=== PATIENT | female | born 1955 | race Caucasian/White ===

== ENCOUNTER 2017-08-07 09:05 | Inpatient (IN) | payer OTHER ==
[~2017-08-07] VITALS: Ht 154.9 cm; Wt 149.3 kg
--- NOTE | 2017-08-07 09:12 | ED DYSPNEA/ASTHMA COMPLAINT ---
History of Present Illness General Chief Complaint: Dyspnea (COPD, CHF, Other) Stated Complaint: BIBA SOB/INCREASED EDEMA Source: patient, old records, EMS Exam Limitations: no limitations Vital Signs & Intake/Output Vital Signs & Intake/Output Vital Signs Date Time Temp Pulse Resp B/P B/P Pulse O2 O2 Flow FiO2 Mean Ox Delivery Rate 08/07 1104 90 Room Air 08/07 1030 99 Room Air 08/07 0908 96.4 93 24 130/59 100 Nasal 4.0L Cannula Allergies Coded Allergies: NO KNOWN ALLERGIES (08/07/17) Reconcile Medications Acetaminophen 500 MG TABLET 2 TAB PO QAM PAIN (Reported) Aspirin (Ecotrin*) 81 MG TABLET.DR 2 TAB PO QAM HEART/BLOOD (Reported) Atorvastatin Calcium 20 MG TABLET 1 TAB PO QPM CHOLESTEROL (Reported) Clopidogrel Bisulfate (Clopidogrel) 75 MG TABLET 1 TAB PO DAILY BLOOD THINNER (Reported) Linagliptin (Tradjenta) 5 MG TABLET 1 TAB PO DAILY DM (Reported) Lisinopril/Hydrochlorothiazide (Lisinopril-Hctz 20-25 MG Tab) 20 MG-25 MG TABLET 1 TAB PO DAILY BP (Reported) Metformin HCl 1,000 MG TABLET 1 TAB PO BID DM (Reported) Pioglitazone HCl 30 MG TABLET 1 TAB PO DAILY DM (Reported) Tramadol HCl 50 MG TABLET 1 TAB PO QPM PAIN (Reported) Zolpidem Tartrate 10 MG TABLET 1 TAB PO QPM SLEEP (Reported) Triage Nurses Notes Reviewed? yes HPI: Patient woke up in a pool of urine. This is very atypical for the patient. Patient states that she was treated for urinary tract infection 1 month ago. Patient denies any dysuria. There are no fevers or chills. Patient also noticed that she felt short of breath. Patient denies any chest pain or chest tightness. There is no orthopnea. She does state that her legs have been more swollen over the past 2 days. Upon EMS arrival patient was found with a room air oxygen saturation of 86%. Patient was placed on 4 L via nasal cannula and the oxygen saturation came up to 99%. Past History Travel History Traveled to [place] past 21 day No Medical History Any Pertinent Medical History? see below for history Cardiovascular: hypertension, hyperlipidemia Endocrine: diabetes Cancer(s): UTERINE Surgical History Surgical History: hysterectomy Psychosocial History What is your primary language Lao Tobacco Use: Quit >30 days ago ETOH Use: denies use Illicit Drug Use: denies illicit drug use Family History Hx Contributory? No Review of Systems Review of Systems Constitutional: Reports: no symptoms. EENTM: Reports: no symptoms. Respiratory: Reports: see HPI, short of breath. Cardiovascular: Reports: no symptoms. GI: Reports: no symptoms. Genitourinary: Reports: see HPI. Musculoskeletal: Reports: no symptoms. Skin: Reports: no symptoms. Neurological/Psychological: Reports: no symptoms. Hematologic/Endocrine: Reports: no symptoms. Immunologic/Allergic: Reports: no symptoms. All Other Systems: Reviewed and Negative Physical Exam Physical Exam General Appearance: well developed/nourished, alert, awake, anxious, mild distress Head: atraumatic, normal appearance Eyes: Bilateral: PERRL, EOMI. Ears, Nose, Throat: normal pharynx, normal ENT inspection, hearing grossly normal Neck: normal inspection, supple, full range of motion Respiratory: decreased breath sounds, crackles Cardiovascular: regular rate/rhythm, normal peripheral pulses Gastrointestinal: normal bowel sounds, soft, non-tender Extremities: normal capillary refill, pedal edema Neurologic/Psych: no motor/sensory deficits, awake, alert, oriented x 3, normal mood/affect Skin: intact, normal color, warm/dry Lymphatic: no anterior cervical mone Core Measures ACS in differential dx? No CVA/TIA Diagnosis No Sepsis Present: No Sepsis Focused Exam Completed? No Progress Differential Diagnosis: AMI, bronchitis, CHF, COPD, pulmonary embolism, pneumonia Plan of Care: Orders Procedure Date/time Status Heart Healthy Diet 08/07 D Active Patient Data 08/07 1113 Active ED Holding Orders 08/07 1101 Active Admit to inpatient 08/07 1101 Active Vital Signs 08/07 1101 Active Code Status 08/07 1101 Active Kahn, Insertion/Removal/Asses 08/07 1044 Active CULTURE,URINE 08/07 1044 Active Intake & Output 08/07 1029 Active Telemetry/Bleacher Lard 08/07 0912 Active URINALYSIS 08/07 0912 Active TROPONIN LEVEL 08/07 0912 Complete COMPREHENSIVE METABOLIC PANEL 08/07 0912 Complete CBC WITHOUT DIFFERENTIAL 08/08 911 Complete B-TYPE NATRIURETIC PEP (BNP) 08/07 09 Complete EKG 08/07 0908 Active Laboratory Tests 08/07/17 0923: Anion Gap 7, Estimated GFR > 60, BUN/Creatinine Ratio 68.8 H, Glucose 118 H, Calcium 9.7, Total Bilirubin 0.4, AST 19, ALT 18, Alkaline Phosphatase 86, Troponin I < 0.01, [id number] Pept 1910 H, Total Protein 6.8, Albumin 3.5, Globulin 3.3, Albumin/Globulin Ratio 1.1, CBC w Diff MAN DIFF ORDERED, RBC 4.23, MCV 80.9 L, MCH 24.7 L, MCHC 30.5 L, RDW 19.1 H, MPV 7.2 L, Gran % 84.4 H, Lymphocytes % 5.4 L, Monocytes % 9.2, Eosinophils % 0.9, Basophils % 0.1, Absolute Granulocytes 8.2 H, Absolute Lymphocytes 0.5 L, Absolute Monocytes 0.9 H, Absolute Eosinophils 0.1, Absolute Basophils 0, Platelet Estimate VERIFIED BY SMEAR, Polychromasia 1+, Hypochromic-Microcytic 1+, Poikilocytosis 1+, Anisocytosis 1+, Ovalocytes 1+, Stomatocytes 1+ Microbiology 08/07 1044 URINE ROUT: Urine Culture - ORD Diagnostic Imaging: Viewed by Me: Radiology Read. Discussed w/RAD: Radiology Read. CXR Impression: PATIENT: KITTY MAGANA PRESENT AGE: 62 PATIENT ACCOUNT NO: [id number] : 56 LOCATION: [facility] ORDERING PHYSICIAN: Jeison Munguia MD SERVICE DATE: 08/07/17 EXAM TYPE: RAD - XRY- PORTABLE CHEST XRAY EXAMINATION: XR PORTABLE CHEST CLINICAL INFORMATION: Shortness of breath and hypoxia. COMPARISON: CT scan of 07/30/15. TECHNIQUE: Portable frontal view of the chest was obtained. FINDINGS: Evaluation is limited because of portable technique and patient body habitus. There appears to be bibasilar opacity concerning for layering pleural fluid with associated atelectasis. Pneumonia is not excluded. Heart size is mildly enlarged. IMPRESSION: Limited evaluation. Question small bilateral layering pleural effusions with associated basilar opacity consistent with atelectasis and/or pneumonia. Mildly enlarged cardiac silhouette. DICTATED BY: Linda Dodd MD DATE/TIME DICTATED:08/07/17944 ADOBE BALL MIXER:SHERRY DATE/TIME TRANSCRIBED:08/07/17944 CONFIDENTIAL, DO NOT COPY WITHOUT APPROPRIATE AUTHORIZATION. <Electronically signed in Other Vendor System> SIGNED BY: Linda Dodd MD 08/07/17 0954 Initial ED EKG: SR, NO STT CHANGES, NO CHANGE FROM PRIOR Prior EKG: unchanged Rhythm Strip: normal sinus rhythm Departure Departure Disposition: STILL A PATIENT Condition: Stable Clinical Impression Primary Impression: Fluid overload Referrals: Hernan NAPOLES,Darryl Moreno (PCP/Family) Departure Forms: Customer Survey General Discharge Information Admission Note Spoke With: Christin NAPOLES,Winifred Conde Documentation of Exam: Documentation of any treatments & extenuating circumstances including Concerns Regarding Discharge (functional status, medication knowledge or non-compliance, living conditions, etc.) that warrant an admission rather than observation: [ TELE MONITORING, SERIAL ENZYMES, IV DIURESIS, CARDIOLOGY EVALUATION] Critical Care Note Critical Care Note Critical Care Time: non-applicable
[2017-08-07 09:35] LABS: ABSOLUTE BASOPHIL COUNT 0 /CUMM (0.0-0.2); ABSOLUTE EOSINOPHIL COUNT 0.1 /CUMM (0.0-0.7); ABSOLUTE GRANULOCYTE CT 8.2 /CUMM (1.4-6.5); ABSOLUTE LYMPH COUNT 0.5 /CUMM (1.2-3.4); ABSOLUTE MONOCYTE COUNT 0.9 /CUMM (0.10-0.60); BASOPHIL % 0.1 % (0.0-2.0); EOSINOPHIL % 0.9 % (0-5); GRANULOCYTE % 84.4 % (42.2-75.2); HEMATOCRIT 34.2 % (37-47); MEAN CORPUSCULAR HGB 24.7 PG (27.0-31.0); MEAN CORPUSCULAR HGB CONC 30.5 G/DL (33.0-37.0); MEAN CORPUSCULAR VOLUME 80.9 FL (81.0-99.0); MEAN PLATELET VOLUME 7.2 FL (7.4-10.4); PLATELET COUNT 278 /CUMM (130-400); RBC DISTRIBUTION WIDTH 19.1 % (11.5-14.5); RED BLOOD CELL CT 4.23 /CUMM (4.20-5.40); WHITE BLOOD CELL COUNT 9.8 /CUMM (4.8-10.8)
--- NOTE | 2017-08-07 09:54 | RADIOLOGY REPORT ---
EXAMINATION: XR PORTABLE CHEST CLINICAL INFORMATION: Shortness of breath and hypoxia. COMPARISON: CT scan of 07/30/15. TECHNIQUE: Portable frontal view of the chest was obtained. FINDINGS: Evaluation is limited because of portable technique and patient body habitus. There appears to be bibasilar opacity concerning for layering pleural fluid with associated atelectasis. Pneumonia is not excluded. Heart size is mildly enlarged. IMPRESSION: Limited evaluation. Question small bilateral layering pleural effusions with associated basilar opacity consistent with atelectasis and/or pneumonia. Mildly enlarged cardiac silhouette.
[2017-08-07] MEDS ORDERED: CLOPIDOGREL75 M1 PO (11:42)
[2017-08-07] MEDS ORDERED: PIOGLITAZONE HC30 M1 PO (11:42)
[2017-08-07] MEDS ORDERED: LISINOPRIL-HCT1 EAC1 PO (11:43)
[2017-08-07] MEDS ORDERED: ATORVASTATIN CA20 M1 PO (11:43)
[2017-08-07] MEDS ORDERED: ZOLPIDEM TARTRA10 M1 PO (11:43)
[2017-08-07] MEDS ORDERED: METFORMIN HCL1000 M1 PO (11:43)
[2017-08-07] MEDS ORDERED: TRADJENTA5 M1 PO (11:43)
[2017-08-07] MEDS ORDERED: TRAMADOL HCL50 M1 PO (11:43)
[2017-08-07] MEDS ORDERED: ASPIRIN EC81 M1 PO (11:44)
[2017-08-07] MEDS ORDERED: ACETAMINOPHEN500 M4 PO (11:44)
--- NOTE | 2017-08-07 13:19 | History & Physical ---
Dagoberto Hayes 08/07/17 1319: General Information and HPI MD Statement: I have seen and personally examined KITTY MAGANA and documented this H&P. The patient is a 62 year old F who presented with a patient stated chief complaint of shortness of breath, bilateral lower extremity swelling for a few days. Source of Information: patient Exam Limitations: no limitations History of Present Illness: This is a 62-year-old female with past medical history significant for hypertension, hyperlipidemia, type 2 diabetes mellitus, insomnia, chest pain status post cardiac stent placement 2015, on dual anti platelet agents aspirin, Plavix, uterine cancer status post hysterectomy, chemotherapy, radiotherapy, morbidly obese presented to the emergency room for evaluation of shortness of breath and bilateral lower extremity swelling for few weeks. Patient reports extreme shortness of breath for last few weeks. She reports that she couldn't get out of her bed this morning. She tried almost 3 hours to get out off her bed this morning, couldn't succeed, urinated on her bed. She reports extreme shortness of breath which is ongoing for few days. Also she reports bilateral lower extremity swelling extended up to her groin, abdomen for last few weeks. She couldn't take her shower for last 3 weeks as she couldn't bend because of abdominal distention. She denies any chest pain, palpitations, fever, chills, productive cough, nausea , vomiting, abdomen pain, change in bladder or bowel habits. She denied any constipation, diarrhea, urinary frequency, urgency, dysuria. However she reports rash in her private parts for last few weeks. Also reports foul- smelling from her private areas. She denies any orthopnea, paroxysmal nocturnal dyspnea. She reports weight gain of more than 100 pounds in last few months. She has history of cardiac stent placement 2 years back, taking aspirin and Plavix daily. She denies alcohol abuse, illicit drug abuse. She smokes one pack per day for last 40 years. She follows up with her primary care physician. 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 She never tested for copd - pulmonary function tests. 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 Denies: chills, diaphoresis, fever, malaise, weakness, unexplained weight loss. EENTM: Denies: blurred vision, double vision. Cardiovascular: Reports: edema, peripheral edema. Denies: chest pain, orthopena, palpitations, syncope. Respiratory: Reports: short of breath. Denies: cough, hemoptysis, orthopnea, sputum production, stridor, wheezing. GI: Reports: distention. Denies: abdominal pain, bloating, constipation, diarrhea, melena, nausea, changes in stool. Genitourinary: Denies: discharge, dysuria, frequency. Musculoskeletal: Reports: joint pain. Denies: back pain, gout. Skin: Denies: dryness, erythema, jaundice, lesions, moles. Neurological/Psychological: Denies: anxiety, ataxia, confusion, depressed, dementia. Exam & Diagnostic Data Last 24 Hrs of Vital Signs/I&O Vital Signs Date Time Temp Pulse Resp B/P B/P Pulse O2 O2 Flow FiO2 Mean Ox Delivery Rate 08/07 1237 96.6 84 18 119/56 97 Nasal 4.0L Cannula 08/07 1104 90 Room Air 08/07 1030 99 Room Air 08/07 0908 96.4 93 24 130/59 100 Nasal 4.0L Cannula Intake & Output 08/07 1600 08/07 0800 08/07 0000 Intake Total 0 Output Total Balance 0 Intake, Oral 0 Patient 124.738 kg Weight Weight Reported by Patient Measurement Method Physical Exam General Appearance Alert, Oriented X3, Cooperative, No Acute Distress Skin No Rashes, No Breakdown Skin Temp/Moisture Exam: Warm/Dry Sepsis Skin Exam (color): Normal for Ethnicity HEENT Atraumatic, PERRLA, EOMI, Mucous Membr. moist/pink Neck Supple, No JVD Lymphatic Cervical nl Cardiovascular Regular Rate, Normal S1, Normal S2, No Murmurs Lungs Normal Air Movement Abdomen Normal Bowel Sounds, Soft, No Tenderness, distended abdomen including groin Neurological Normal Gait, Normal Speech, Strength at 5/5 X4 Ext, Normal Tone, Cranial Nerves 3-12 NL, Reflexes 2+ Extremities No Clubbing, No Cyanosis, +3 edema pititing Vascular Normal Pulses, Pulses Symmetrical Sepsis Peripheral Pulse Location: Radial Sepsis Peripheral Pulse Exam: Normal Sepsis Cap Refill Exam: <2 Sec Last 24 Hrs of Labs/William: Laboratory Tests 08/07/17 1207: Urine Color YEL, Urine Clarity HAZY H, Urine pH 5.5, Ur Specific [place] 1.025, Urine Protein TRACE H, Urine Ketones NEG, Urine Nitrite POS H, Urine Bilirubin NEG, Urine Urobilinogen 0.2, Ur Leukocyte Esterase NEG, Ur Microscopic SEDIMENT EXAMINED, Urine RBC RARE, Urine WBC RARE, Ur Epithelial Cells RARE, Urine Bacteria MANY H, Urine Hemoglobin NEG, Urine Glucose NEG 08/07/17 0923: Anion Gap 7, Estimated GFR > 60, BUN/Creatinine Ratio 68.8 H, Glucose 118 H, Calcium 9.7, Total Bilirubin 0.4, AST 19, ALT 18, Alkaline Phosphatase 86, Troponin I < 0.01, Ypj-H-Riipuxzccym Pept 1910 H, Total Protein 6.8, Albumin 3.5, Globulin 3.3, Albumin/Globulin Ratio 1.1, CBC w Diff MAN DIFF ORDERED, RBC 4.23, MCV 80.9 L, MCH 24.7 L, MCHC 30.5 L, RDW 19.1 H, MPV 7.2 L, Gran % 84.4 H, Lymphocytes % 5.4 L, Monocytes % 9.2, Eosinophils % 0.9, Basophils % 0.1, Absolute Granulocytes 8.2 H, Absolute Lymphocytes 0.5 L, Absolute Monocytes 0.9 H, Absolute Eosinophils 0.1, Absolute Basophils 0, Platelet Estimate VERIFIED BY SMEAR, Polychromasia 1+, Hypochromic-Microcytic 1+, Poikilocytosis 1+, Anisocytosis 1+, Ovalocytes 1+, Stomatocytes 1+ Microbiology 08/07 1206 URINE ROUT: Urine Culture - RECD Diagnostic Data EKG Results EKG normal sinus rhythm, rate 83, no acute ST-T wave changes CXR Results Question small bilateral layering pleural effusions with associated basilar opacity consistent with atelectasis and/or pneumonia. Mildly enlarged cardiac silhouette. Assessment/Plan Assessment: This is a 62-year-old female with past medical history significant for hypertension, hyperlipidemia, type 2 diabetes mellitus, insomnia, chest pain status post cardiac stent placement 2016, on dual anti platelet agents aspirin, Plavix, uterine cancer status post hysterectomy, chemotherapy, radiotherapy, morbidly obese presented to the emergency room for evaluation of shortness of breath and bilateral lower extremity swelling for few weeks. Vital signs afebrile, heart rate 90, respiratory rate 24, blood pressure 130/60, Saturating at 100 on 4 L. labs WBC 9.8, hemoglobin 10 and hematocrit 34, platelets 278 Sodium 139, k 5.1, BUN 55, creatinine 0.8 LFT normal Troponin negative EKG 89, sinus rhythm, no acute ST-T wave changes cxr small bilateral layering pleural effusions witassociated basilar opacity consistent with atelectasis and/or pneumonia. Mildly enlarged cardiac silhouette. --- 1. Anasarca/generalized swelling/fluid overload/questionable CHF she presented to the emergency room for evaluation of shortness of breath and bilateral lower extremity swelling for few weeks. She couldn't take her shower for last 3 weeks as she couldn't bend because of abdominal distention. Patient reports generalized swelling involving lower extremities up to her groin, abdomen. She denies any orthopnea, paroxysmal nocturnal dyspnea. She reports weight gain of more than 100 pounds in last few months. She is very hypoxic requiring 4 L oxygen supplementation in the emergency room. Labs were within normal limits. Chest x-ray was done which showed bilateral small pleural effusion and mild cardiomegaly. * Possible differentials congestive heart failure leading to generalized anasarca. * Admit to telemetry * Continuous telemetry monitoring * Oxygen supplementation * Maintain oxygen saturation above 90 * Monitor ins and outs * Daily weight * IV Lasix 40 twice daily * Echocardiogram * Cardiology consult * Serial monitoring of troponin and EKG * Monitor BUN, creatinine, electrolytes while on Lasix * Foleys catheter in place Fungal rash involving groin she reports rash in her private parts for last few weeks. Also reports foul- smelling from her private areas. * Continue nystatin powder daily CAD She has history of cardiac stent placement 2 years back, taking aspirin and Plavix daily. * Continue home medication aspirin and Plavix daily Hypertension continue lisinopril, hydrochlorothiazide daily Hyperlipidemia continue Lipitor 20 daily Diabetes mellitus continue Accu-Cheks insulin sliding scale. Patient is on metformin, TRADJENTA, pioglitazone at home. Given her fluid overload consider stopping pioglitazone at the time of discharge. Endocrinology consult in the a.m. Insomnia continue home dose of zolpidem 10 mg daily at bedtime Arthritis pain continue tramadol 50 mg at nighttime as needed She is full code Heart healthy diet DVT prophylaxis subcutaneous Lovenox Pain pathway altered As Ranked By This Provider Problem List: 1. Fluid overload Core Measures/Misc (02/13) Acute Coronary Syndrome ACS Diagnosis: No Congestive Heart Failure Congestive Heart Failure Diagnosis No Cerebrovascular Accident CVA/TIA Diagnosis: No VTE (View Protocol) VTE Risk Factors Acute Medical Illness No Mechanical VTE Prophylaxis d/t N/A MechProphylax Ordered No VTE Pharm Prophylaxis d/t NA PharmProphylax ordered Sepsis (View protocol) Sepsis Present: No Winifred Waller 08/07/17 1446: General Information and HPI Allergies/Medications Home Med list Acetaminophen 500 MG TABLET 2 TAB PO QAM PAIN (Reported) Aspirin (Ecotrin*) 81 MG TABLET.DR 2 TAB PO QAM HEART/BLOOD (Reported) Atorvastatin Calcium 20 MG TABLET 1 TAB PO QPM CHOLESTEROL (Reported) Clopidogrel Bisulfate (Clopidogrel) 75 MG TABLET 1 TAB PO DAILY BLOOD THINNER (Reported) Empagliflozin (Jardiance) 10 MG TABLET 1 TAB PO DAILY DM Furosemide 40 MG TABLET 1 TAB PO BID diuretic Linagliptin (Tradjenta) 5 MG TABLET 1 TAB PO DAILY DM (Reported) Lisinopril 20 MG TABLET 20 MG PO DAILY Blood Pressure Lisinopril/Hydrochlorothiazide (Lisinopril-Hctz 20-25 MG Tab) 20 MG-25 MG TABLET 1 TAB PO DAILY BP (Reported) Metformin HCl 1,000 MG TABLET 1 TAB PO BID DM (Reported) Pioglitazone HCl 30 MG TABLET 1 TAB PO DAILY DM (Reported) Potassium Chloride (Klor-Con M20) 20 MEQ TAB.ER.PRT 20 MEQ PO DAILY Lasix use Tramadol HCl 50 MG TABLET 1 TAB PO QPM PAIN (Reported) Zolpidem Tartrate 10 MG TABLET 1 TAB PO QPM SLEEP (Reported) Attending MD Review Statement Attending Statement Attending MD Statement: examined this patient, discuss w/resident/PA/OUTSIDE RIGGER, agreed w/resident/PA/OUTSIDE RIGGER, reviewed EMR data (avail), discussed with nursing, discussed with case mgmt Attending Assessment/Plan: 62 yr morbidly obese female with pmh of DM, HTN, HLD, CAD s/p stenting with Dr Harper who was brought in by EMS for sob and worsening leg swelling and abdominal swelling over the last few weeks. Pt was found to be hypoxic by EMS with 86% on RA. CXR in ER shows - " Question small bilateral layering pleural effusions with associated basilar opacity consistent with atelectasis and/or pneumonia. Mildly enlarged cardiac silhouette." Pt in ER was given 40mg iv lasix and trop was negative. Pt being admitted for actue chf exacerbation with anasarca will start her on lasix 40mg iv bid and will get cardiology to see her and will get an echo. will monitor on tele and strict I & O. Will get endo consult for DM management. will dc actos given the chf. will start her on SSI and will get AIC level.
--- NOTE | 2017-08-07 14:07 | Admission Certification ---
Admission Certification Certification Statement - As attending physician, I certify that at the time of - admission, based on clinical presentation, severity of - symptoms, need for further diagnostic testing and - therapeutic interventions, and risk of adverse outcomes - without in-hospital treatment, in my clinical assessment, - this patient requires an acute hospital stay for a minimum - of two nights or longer. I have also considered psychsocial - factors such as support system, advanced age, financial - issues, cognitive issues, and failed out-patient treatments, - past re-admission history, safety of patient, and lack of - compliance as applicable. Specific rationale supporting this admission is: acute chf exacerbation with anasarca
--- NOTE | 2017-08-07 18:15 | Cons- Cardiology ---
"General Information and HPI Consulting Request Date of Consult: 08/07/17 Requested By: Christin NAPOLES,Winifred Conde History of Present Illness: Paola is a 62 year old female with history of hypertension, dyslipidemia, diabetes and tobacco abuse. She also carries a history of emphysema. She was initially referred for evaluation of coronary calcifications found on a CT scan of the chest. In consideration of her symptoms and CT finding I did pursue a cardiac catheterization that disclosed a long 50% LAD lesion distally and a 70% proximal OM1 lesion. The OM1 received a 2.75 x 22mm Resolute stent. Coronary calcifications were again noted on her cath. Her overall EF was normal at 60%. This patient has not followed up in the office. She has gained about a hundred pounds over the course of a year. Over the few weeks this patient has felt poorly with shortness of breath that has become progressively worse. This morning the patient was so weak and her legs so heavy from swelling that she could not get out of bed and eventually urinated in bed. At baseline this patient walks slowly. She does have occasional episodes of lightheadedness and passed out twice in the past. She denies any palpitations. The patient does have a history of hypotension. Unfortunately, Paola continues to smoke. Allergies/Medications Allergies: Coded Allergies: NO KNOWN ALLERGIES (08/07/17) Home Med List: Acetaminophen 500 MG TABLET 2 TAB PO QAM PAIN (Reported) Aspirin (Ecotrin*) 81 MG TABLET.DR 2 TAB PO QAM HEART/BLOOD (Reported) Atorvastatin Calcium 20 MG TABLET 1 TAB PO QPM CHOLESTEROL (Reported) Clopidogrel Bisulfate (Clopidogrel) 75 MG TABLET 1 TAB PO DAILY BLOOD THINNER (Reported) Linagliptin (Tradjenta) 5 MG TABLET 1 TAB PO DAILY DM (Reported) Lisinopril/Hydrochlorothiazide (Lisinopril-Hctz 20-25 MG Tab) 20 MG-25 MG TABLET 1 TAB PO DAILY BP (Reported) Metformin HCl 1,000 MG TABLET 1 TAB PO BID DM (Reported) Pioglitazone HCl 30 MG TABLET 1 TAB PO DAILY DM (Reported) Tramadol HCl 50 MG TABLET 1 TAB PO QPM PAIN (Reported) Zolpidem Tartrate 10 MG TABLET 1 TAB PO QPM SLEEP (Reported) Review of Systems Review of Systems: A review of systems is unremarkable other than the above. 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 Mother: emphysema Father: from trauma. History of stroke and NC at age 72. Psychosocial History Where Do You Live? Home Smoking Status: Current Everyday Smoker (1ppd) ETOH Use: denies use Illicit Drug Use: denies illicit drug use Exam & Diagnostic Data Vital Signs and I&O Vital Signs Date Time Temp Pulse Resp B/P B/P Pulse O2 O2 Flow FiO2 Mean Ox Delivery Rate 08/07 1436 Nasal 4.0L Cannula 08/07 1237 96.6 84 18 119/56 97 Nasal 4.0L Cannula 08/07 1104 90 Room Air 08/07 1030 99 Room Air 08/07 0908 96.4 93 24 130/59 100 Nasal 4.0L Cannula Intake & Output 08/07 1600 08/07 0800 08/07 0000 08/06 1600 08/06 0800 08/06 0000 Intake Total 10 Output Total Balance 10 Intake, IV 10 Intake, Oral 0 Patient 354 lb Weight Weight Bed scale Measurement Method Physical Exam: General: WD/morbidly obese female in NAD; alert and oriented x 3 HEENT: NC/AT, PERRL, EOMI Neck: no JVD, no carotid bruit Heart: RRR with 2/6 systolic murmur at the LLSB and RUSB Lungs: no crackles or wheezing Abdomen: soft, Obese, NT, +ve bowel sounds Extremities: 2+ leg edema Diagnostic Data EKG Results sinus rhythm Assessment/Plan Assessment/Plan * This patient has evidence of decompensated right greater than left heart failure which is likely due to underlying lung disease and 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 She has more mild symptoms of left heart failure which may be on the basis of myocardial ischemia and morbid obesity. Consideration should also be given to the possibility of a malignancy with hepatic involvment considering her history of cancer. I think this is less likely considering her weight gain instead of loss. This patient should be diuresed with Lasix 40mg IV BID. Stop Actos which is known to cause fluid retention. Continue afterload reduction with Lisinopril which will also help her blood pressure. Continue a low sodium and low calorie diabetic diet and supplemental oxygen. Obtain an echocardiogram. * This patient has ruled out for an NC. When more stable we will risk stratify her with a pharmacologic stress test to see if there is any progression of her LAD lesion that may by contributing to LV dysfunction. Continue aspirin and a Statin. Consult Acknowledgment - Thank you for your consult request."
[2017-08-07 22:53] VITALS: BP 122/68
[2017-08-08 07:04] VITALS: BP 98/44
--- NOTE | 2017-08-08 07:37 | PN- Housestaff ---
Drake NAPOLES,[facility] 08/08/17 0737: Subjective Follow-up For: New Onset CHF Anemia Tele-Events Since Last Visit: NSR Noovernighr events noted Subjective: Patient reports SOB especially with exertion x 3-4 weeks. Has not been able to ambulate much because of the edema and weight gain. Denies any chest pain or palpitations. Review of Systems Constitutional: Reports: no symptoms. EENTM: Reports: no symptoms. Cardiovascular: Reports: peripheral edema. Respiratory: Reports: short of breath. Gastrointestinal: Reports: no symptoms. Genitourinary: Reports: no symptoms. Musculoskeletal: Reports: no symptoms. Skin: Reports: no symptoms. Neurological/Psychological: Reports: no symptoms. Hematologic/Endocrine: Reports: no symptoms. Immunologic/Allergic: Reports: no symptoms. Objective Last 24 Hrs of Vital Signs/I&O Vital Signs Date Time Temp Pulse Resp B/P B/P Pulse O2 O2 Flow FiO2 Mean Ox Delivery Rate 08/08 1600 94 Nasal 2.0L Cannula 08/08 1513 97.2 82 22 100/50 96 Nasal 2.0L Cannula 08/08 1211 98 Nasal 2.0L Cannula 08/08 1008 83 120/68 08/08 0800 93 Nasal 2.0L Cannula 08/08 0704 97.9 83 20 98/44 99 Nasal 2.0L Cannula 08/08 0000 Nasal 2.0L Cannula 08/07 2253 98.0 95 18 122/68 97 Nasal Cannula Intake & Output 08/08 1600 08/08 0800 08/08 0000 Intake Total 480 240 240 Output Total 2500 550 1300 Balance -2019 -310 -1060 Intake, Oral 480 240 240 Number 1 1 Bowel Movements Output, Urine 2500 550 1300 Physical Exam General Appearance: Alert, Oriented X3, Cooperative Skin: No Rashes, No Breakdown Cardiovascular: Regular Rate, Normal S1, Normal S2 Lungs: Clear to Auscultation, Normal Air Movement Abdomen: Normal Bowel Sounds, Soft, No Tenderness Extremities: No Clubbing, No Cyanosis, +2-3 pitting edema Current Medications: Current Medications Sig/Odilon Start time Last Medication Dose Route Stop Time Status Admin Acetaminophen 650 MG .STK-MED ONE 08/08 1012 DC PO 08/08 1013 Acetaminophen 650 MG .STK-MED ONE 08/08 0113 DC PO 08/08 0114 Acetaminophen 650 MG Q6P PRN 08/07 1315 AC 08/08 PO 1012 Albuterol Sulfate 3 ML Q4P PRN 08/07 1900 AC 08/07 INH 2045 Aspirin Buffered 162 MG QAM 08/07 1319 AC 08/08 PO 1007 Atorvastatin Calcium 20 MG QPM 08/07 2200 AC 08/07 PO 2216 Clopidogrel Bisulfate 75 MG DAILY 08/07 1319 AC 08/08 PO 1008 Enoxaparin Sodium 40 MG DAILY 08/07 1310 AC 08/08 SC 1008 Furosemide 40 MG 7:30 AM, & 4:30 PM 08/07 1630 AC 08/08 IV 1601 Hydrochlorothiazide 25 MG DAILY 08/08 1000 AC 08/08 PO 1007 Insulin Aspart 0 TIDAC 08/07 1700 AC SC Lisinopril 20 MG DAILY 08/08 1000 AC 08/08 PO 1008 Nicotine 14 MG DAILY 08/07 1504 AC 08/08 TOP 1007 Nystatin 1 KRYSTAL TID PRN 08/07 1330 AC 08/07 TOP 1644 Oxybutynin Chloride 2.5 MG BID PRN 08/08 1045 AC 08/08 PO 1600 Oxybutynin Chloride 2.5 MG ONCE ONE 08/08 0100 DC 08/08 PO 08/08 0101 0115 Tramadol HCl 50 MG QPM 08/07 2200 AC 08/07 PO 2357 Zolpidem Tartrate 10 MG QPM 08/07 2200 AC 08/07 PO 2357 Last 24 Hrs of Lab/William Results Last 24 Hrs of Labs/Mics: Laboratory Tests 08/08/17 0639: Anion Gap 6, Estimated GFR > 60, BUN/Creatinine Ratio 57.5 H, Iron 31 L, TIBC 402, Ferritin 13.1, Vitamin B12 469, CBC w Diff NO MAN DIFF REQ, RBC 3.88 L, MCV 80.4 L, MCH 24.8 L, MCHC 30.8 L, RDW 18.9 H, MPV 7.3 L, Gran % 80.5 H, Lymphocytes % 6.9 L, Monocytes % 11.3 H, Eosinophils % 1.2, Basophils % 0.1, Absolute Granulocytes 7.6 H, Absolute Lymphocytes 0.7 L, Absolute Monocytes 1.1 H, Absolute Eosinophils 0.1, Absolute Basophils 0 08/07/17 2240: Troponin I < 0.01 Assessment/Plan Assessment: This is a 62-year-old female with past medical history significant for hypertension, hyperlipidemia, type 2 diabetes mellitus, insomnia, chest pain status post cardiac stent placement 2015, on dual anti platelet agents aspirin, Plavix, uterine cancer status post hysterectomy, chemotherapy, radiotherapy, morbidly obese presented to the emergency room for evaluation of shortness of breath and bilateral lower extremity swelling for few weeks. Preblem List 1. New onset CHF; ??Systolic VS Diastolic 2. Anemia 3. Hx of Diabetes, HTN, HLD, CAP s/p stent placement on aspirin and plavix - Continue IV lasix 40 BID - Monitor daily weights, Ins and Outs. Keep the hung in as the patient reports being more incontinent lately. - Try to wean off O2. - Echocardiogram pending - Apprciate cardiology recommendations - Drop in H&H from 10.4 to 9.6. Continue to moniture. Goal Hb of 8. - Discontinue Pioglitazone, Endo consult for adjustment of oral hypoglycemic agents on discharge. - Urine Cx going gram negative rods. Patient reports being more incontinent lately, but denies any other urinary symptoms, remains afebrile with no white cell count. Continue to monitor off Abx. - Continue Nystatin powder for inguinal fungal rash. - PT evaluation for discharge recommendations - Continue rest of the home medications. DVT Prophylaxis; S/C Lovenox Patient is full code. Problem List: 1. Fluid overload Pain Ratin Pain Location: None Pain Goal: Remain pain free Pain Plan: NA Tomorrow's Labs & Rationales: CBC(drop in H&H) Zach NAPOLES,Halinahector 08/08/17 1318: Attending MD Review Statement Attending Statement Attending MD Statement: examined this patient, discuss w/resident/PA/VICE PRESIDENT INTEGRATED, agreed w/resident/PA/VICE PRESIDENT INTEGRATED, reviewed EMR data (avail), discussed with nursing, discussed with case mgmt, amended to note Attending Assessment/Plan: Patient seen and examined. Sitting up in bed and not in any acute distress. No events on telemetry monitoring overnight. No new complaints this morning. She reports feeling better compared to presentation. Denies chest pain or shortness of breath at rest. Denies cough. She is maintaining saturation on 90% on 2 L of oxygen. She has no jugular venous distention. Heart sounds are regular. Lungs exam reveals very poor entry bilaterally with no added sounds. Abdomen soft and nontender. She has bilateral pedal edema. Laboratory data today shows drop of her hematocrit from 34.2 yesterday to 31.2 this morning. Creatinine remains within normal limits. She has elevated BUN level. She had a negative fluid balance of just over 1 L yesterday. Problems: 1. Acute hypoxic respiratory failure. 2. Decompensated CHF; query systolic versus diastolic. 3. History of coronary artery disease. 4. Pwt-piaemjf-[id number] diabetes mellitus. 5. Iron deficiency anemia Plan: -Continue diuresis with Lasix 40 mg IV twice daily. Continue monitor daily weights and input output. -Wean off oxygen supplementation as tolerated. Mobilize patient. -Follow-up echocardiogram to determine the nature of her congestive heart failure. -Follow-up with cardiology service regarding need and timing for further ischemic workup. -Her pioglitazone will not be resumed at the time of discharge. -Obtain endocrinology consultation for optimization of her glucose control since we are taking her off on her medications -She is noted to have a drop in hemoglobin level. She is also noted to be iron deficient on labs. Check stool guaiac. Monitor hemoglobin levels closely. Transfuse to keep hemoglobin level greater than 8 given her history of coronary artery disease.
[2017-08-08 08:18] LABS: ABSOLUTE BASOPHIL COUNT 0 /CUMM (0.0-0.2); ABSOLUTE EOSINOPHIL COUNT 0.1 /CUMM (0.0-0.7); ABSOLUTE GRANULOCYTE CT 7.6 /CUMM (1.4-6.5); ABSOLUTE LYMPH COUNT 0.7 /CUMM (1.2-3.4); ABSOLUTE MONOCYTE COUNT 1.1 /CUMM (0.10-0.60); BASOPHIL % 0.1 % (0.0-2.0); EOSINOPHIL % 1.2 % (0-5); GRANULOCYTE % 80.5 % (42.2-75.2); HEMATOCRIT 31.2 % (37-47); MEAN CORPUSCULAR HGB 24.8 PG (27.0-31.0); MEAN CORPUSCULAR HGB CONC 30.8 G/DL (33.0-37.0); MEAN CORPUSCULAR VOLUME 80.4 FL (81.0-99.0); MEAN PLATELET VOLUME 7.3 FL (7.4-10.4); PLATELET COUNT 242 /CUMM (130-400); RBC DISTRIBUTION WIDTH 18.9 % (11.5-14.5); RED BLOOD CELL CT 3.88 /CUMM (4.20-5.40); WHITE BLOOD CELL COUNT 9.4 /CUMM (4.8-10.8)
--- NOTE | 2017-08-08 12:12 | PN- Cardiology ---
Subjective Subjective: * Breathing is improved although not quite to baseline. Objective Vital Signs and I&Os Vital Signs Date Time Temp Pulse Resp B/P B/P Pulse O2 O2 Flow FiO2 Mean Ox Delivery Rate 08/08 1008 83 120/68 08/08 0800 93 Nasal 2.0L Cannula 08/08 0704 97.9 83 20 98/44 99 Nasal 2.0L Cannula 08/08 0000 Nasal 2.0L Cannula 08/07 2253 98.0 95 18 122/68 97 Nasal Cannula 08/07 1851 96 Nasal 2.0L Cannula 08/07 1844 Nasal 3.0L Cannula 08/07 1436 Nasal 4.0L Cannula 08/07 1237 96.6 84 18 119/56 97 Nasal 4.0L Cannula Intake & Output 08/08 1600 08/08 0800 08/08 0000 08/07 1600 08/07 0800 08/07 0000 Intake Total 240 240 10 Output Total 550 1300 Balance -310 -1060 10 Intake, IV 10 Intake, Oral 240 240 0 Number 1 Bowel Movements Output, Urine 550 1300 Patient 354 lb Weight Weight Bed scale Measurement Method Physical Exam: General: WD/morbidly obese female in NAD; alert and oriented x 3 Neck: no JVD, no carotid bruit Heart: RRR with 2/6 systolic murmur at the LLSB and RUSB Lungs: no crackles or wheezing Abdomen: soft, Obese, NT, +ve bowel sounds Extremities: 2+ leg edema Assessment/Plan Assessment/Plan * This patient has evidence of decompensated right greater than left heart failure which is likely due to underlying lung disease and 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 She has more mild symptoms of left heart failure which may be on the basis of myocardial ischemia and morbid obesity. Consideration should also be given to the possibility of a malignancy with hepatic involvment considering her history of cancer. I think this is less likely considering her weight gain instead of loss. Continue to diurese with Lasix 40mg IV BID. Stop Actos which is known to cause fluid retention. Continue afterload reduction with Lisinopril which will also help her blood pressure. Continue a low sodium and low calorie diabetic diet and supplemental oxygen. * Obtain an echocardiogram. * This patient has ruled out for an ME. Obtain a pharmacologic stress test to see if there is any progression of her LAD lesion that may by contributing to LV dysfunction. Continue aspirin and a Statin. Continue telemetry? Yes
--- NOTE | 2017-08-08 12:48 | Cons- Endocrinology ---
"General Information and HPI Consulting Request Date of Consult: 08/08/17 Requested By: medical team Reason for Consult: diabetes Source of Information: patient, old records Exam Limitations: no limitations History of Present Illness: This 62-year-old woman came to the emergency room by ambulance because of shortness of breath. She has been found to be in congestive heart failure. She really has anasarca her with edema of the lower half of her body. The patient states she has had diabetes for many years. Prior to admission she was on pioglitazone, metformin, and Tradjenta. She denies any history of diabetic eye problems are diabetic kidney problems. She is followed by Dr. Darryl Becerra as an outpatient. She has a known history of coronary artery disease status post placement of a stent by Dr. Harper. She also has COPD. She continues to smoke about 1 pack of cigarettes per day. The patient notes that she gained about 100 pounds of weight over the past year. About 10 years ago she states that she was able to take off 100 pounds and kept it off until the past year. The patient has a history of being treated for uterine cancer with surgery and radiation and chemotherapy. She is followed at [facility] on an every 6 months basis. Allergies/Medications Allergies: Coded Allergies: NO KNOWN ALLERGIES (08/07/17) Home Med List: Acetaminophen 500 MG TABLET 2 TAB PO QAM PAIN (Reported) Aspirin (Ecotrin*) 81 MG TABLET. 2 TAB PO QAM HEART/BLOOD (Reported) Atorvastatin Calcium 20 MG TABLET 1 TAB PO QPM CHOLESTEROL (Reported) Clopidogrel Bisulfate (Clopidogrel) 75 MG TABLET 1 TAB PO DAILY BLOOD THINNER (Reported) Linagliptin (Tradjenta) 5 MG TABLET 1 TAB PO DAILY DM (Reported) Lisinopril/Hydrochlorothiazide (Lisinopril-Hctz 20-25 MG Tab) 20 MG-25 MG TABLET 1 TAB PO DAILY BP (Reported) Metformin HCl 1,000 MG TABLET 1 TAB PO BID DM (Reported) Pioglitazone HCl 30 MG TABLET 1 TAB PO DAILY DM (Reported) Tramadol HCl 50 MG TABLET 1 TAB PO QPM PAIN (Reported) Zolpidem Tartrate 10 MG TABLET 1 TAB PO QPM SLEEP (Reported) Current Medications: Current Medications Sig/Odilon Start time Last Medication Dose Route Stop Time Status Admin Acetaminophen 650 MG .STK-MED ONE 08/08 112 DC PO 03/12 0114 Acetaminophen 650 MG Q6P PRN 08/07 1315 AC 08/08 PO 1012 Albuterol Sulfate 3 ML Q4P PRN 08/07 1900 AC 08/07 INH 2045 Aspirin Buffered 162 MG QAM 08/07 1319 AC 08/08 PO 1007 Atorvastatin Calcium 20 MG QPM 08/07 2200 AC 08/07 PO 2216 Clopidogrel Bisulfate 75 MG DAILY 08/07 1319 AC 08/08 PO 1008 Enoxaparin Sodium 40 MG DAILY 08/07 1310 AC 08/08 SC 1008 Furosemide 40 MG 7:30 AM, & 4:30 PM 08/07 1630 AC 08/08 IV 0823 Hydrochlorothiazide 25 MG DAILY 08/08 1000 AC 08/08 PO 1007 Insulin Aspart 0 TIDAC 08/07 1700 AC SC Lisinopril 20 MG DAILY 08/08 1000 AC 08/08 PO 1008 Nicotine 14 MG DAILY 08/07 1504 AC 08/08 TOP 1007 Nystatin 1 KRYSTAL TID PRN 08/07 1330 AC 08/07 TOP 1644 Oxybutynin Chloride 2.5 MG BID PRN 08/08 1045 AC PO Oxybutynin Chloride 2.5 MG ONCE ONE 08/08 0100 DC 08/08 PO 08/08 0101 0115 Tramadol HCl 50 MG QPM 08/07 2200 AC 08/07 PO 2357 Zolpidem Tartrate 10 MG QPM 08/07 2200 AC 08/07 PO 2357 Review of Systems Review of Systems Constitutional: Denies: chills, fever. Cardiovascular: Reports: orthopena, peripheral edema. Denies: chest pain. Respiratory: Reports: short of breath. GI: Reports: abdominal pain, nausea, vomiting. Musculoskeletal: Reports: back pain. Neurological/Psychological: Denies: anxiety, numbness. Hematologic/Endocrine: Denies: bruising. 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 Home Smoking Status: Current Everyday Smoker (1ppd) ETOH Use: denies use Illicit Drug Use: denies illicit drug use Exam & Diagnostic Data Last 24 Hrs of Vital Signs/I&O Vital Signs Date Time Temp Pulse Resp B/P B/P Pulse O2 O2 Flow FiO2 Mean Ox Delivery Rate 08/08 1211 98 Nasal 2.0L Cannula 08/08 1008 83 120/68 08/08 0800 93 Nasal 2.0L Cannula 08/08 0704 97.9 83 20 98/44 99 Nasal 2.0L Cannula 08/08 0000 Nasal 2.0L Cannula 08/07 2253 98.0 95 18 122/68 97 Nasal Cannula 08/07 1851 96 Nasal 2.0L Cannula 08/07 1844 Nasal 3.0L Cannula 08/07 1436 Nasal 4.0L Cannula Intake & Output 08/08 1600 08/08 0800 03 0000 Intake Total 240 240 Output Total 550 1300 Balance -310 -1060 Intake, Oral 240 240 Number 1 Bowel Movements Output, Urine 550 1300 Vital Signs Date Time Temp Pulse Resp B/P B/P Pulse O2 O2 Flow FiO2 Mean Ox Delivery Rate 08/08 1211 98 Nasal 2.0L Cannula 08/08 1008 83 120/68 08/08 0800 93 Nasal 2.0L Cannula 08/08 0704 97.9 83 20 98/44 99 Nasal 2.0L Cannula 08/08 0000 Nasal 2.0L Cannula 08/07 2253 98.0 95 18 122/68 97 Nasal Cannula 08/07 1851 96 Nasal 2.0L Cannula 08/07 1844 Nasal 3.0L Cannula 08/07 1436 Nasal 4.0L Cannula Intake & Output 08/08 1600 08/08 0800 03 0000 Intake Total 240 240 Output Total 550 1300 Balance -310 -1060 Intake, Oral 240 240 Number 1 Bowel Movements Output, Urine 550 1300 Physical Exam General Appearance: alert, awake, comfortable Eyes: Bilateral: normal appearance. Neck: normal inspection Respiratory: decreased breath sounds (both bases) Cardiovascular: regular rate/rhythm Extremities: swelling Skin: stasis dematitis Other Physical Findings: Edema of lower legs lower abdominal wall Labs/William Results: Laboratory Tests 08/08 08/07 08/07 0639 2240 1625 Chemistry Sodium (137 - 145 mmol/L) 135 L Potassium (3.5 - 5.1 mmol/L) 4.9 Chloride (98 - 107 mmol/L) 98 Carbon Dioxide (22 - 30 mmol/L) 31 H Anion Gap (5 - 16) 6 BUN (7 - 17 mg/dL) 46 H Creatinine (0.5 - 1.0 mg/dL) 0.8 Estimated GFR (>60 ml/min) > 60 BUN/Creatinine Ratio (7 - 25 %) 57.5 H Iron (37 - 170 ug/dL) 31 L TIBC (265 - 497 ug/dL) 402 Ferritin (11.1 - 264 ng/mL) 13.1 Troponin I (< 0.11 ng/ml) < 0.01 < 0.01 Vitamin B12 (239 - 931 pg/mL) 469 Hematology CBC w Diff NO MAN DIFF REQ WBC (4.8 - 10.8 /CUMM) 9.4 RBC (4.20 - 5.40 /CUMM) 3.88 L Hgb (12.0 - 16.0 G/DL) 9.6 L Hct (37 - 47 %) 31.2 L MCV (81.0 - 99.0 FL) 80.4 L MCH (27.0 - 31.0 PG) 24.8 L MCHC (33.0 - 37.0 G/DL) 30.8 L RDW (11.5 - 14.5 %) 18.9 H Plt Count (130 - 400 /CUMM) 242 MPV (7.4 - 10.4 FL) 7.3 L Gran % (42.2 - 75.2 %) 80.5 H Lymphocytes % (20.5 - 51.1 %) 6.9 L Monocytes % (1.7 - 9.3 %) 11.3 H Eosinophils % (0 - 5 %) 1.2 Basophils % (0.0 - 2.0 %) 0.1 Absolute Granulocytes (1.4 - 6.5 /CUMM) 7.6 H Absolute Lymphocytes (1.2 - 3.4 /CUMM) 0.7 L Absolute Monocytes (0.10 - 0.60 /CUMM) 1.1 H Absolute Eosinophils (0.0 - 0.7 /CUMM) 0.1 Absolute Basophils (0.0 - 0.2 /CUMM) 0 Assessment/Plan Assessment/Plan This patient has a history of type 2 diabetes associated with morbid obesity. Prior to admission she was on pioglitazone, Tradjenta, and metformin. The pioglitazone had to be stopped because the patient has evidence of fluid retention and congestive heart failure. When the patient is home as an outpatient, we would continue to treat this patient with metformin and Tradjenta. It will take 2-3 weeks for the effects of the pioglitazone to wear off. She would be a good candidate for Jardiance 10 mg once a day. She has a known history of coronary artery disease. Jardiance can reduce the risk of cardiovascular events and also would help her get rid of additional fluid. A GLP-1 analog such as Trulicity could also be used. While in the hospital we can keep the patient on a low-salt consistent carbohydrate 1 diet. So far her sugars are in the 100-140 range. I agree that we can place her on sliding scale NovoLog for sugars above 150 should they become more elevated. I would not place her in any basal insulin for now. In view of the edema we should check the patient's thyroid function tests including a free T4 and TSH. Consult Acknowledgment - Thank you for your consult request."
[2017-08-08 15:13] VITALS: BP 100/50
[2017-08-08 22:30] VITALS: BP 104/58
[2017-08-09 06:51] VITALS: BP 100/54
--- NOTE | 2017-08-09 07:24 | PN- Housestaff ---
Iris Gomez 08/09/17 0723: Subjective Follow-up For: New Onset CHF Anemia Tele-Events Since Last Visit: NSR 70-90s Subjective: Patient complainted of frequent bladder spasm overnight, every 5 minutes, and did not have a good sleep from that. Also not comfortable with the bed. Patient was kept NPO overnight for stress test this AM. Review of Systems Constitutional: Reports: see HPI. Objective Last 24 Hrs of Vital Signs/I&O Vital Signs Date Time Temp Pulse Resp B/P B/P Pulse O2 O2 Flow FiO2 Mean Ox Delivery Rate 08/09 0651 97.7 85 20 100/54 92 Nasal 2.0L Cannula 08/09 0000 Nasal 2.0L Cannula 08/08 2230 97.5 70 22 104/58 95 Nasal Cannula 08/08 2126 96 Nasal 2.0L Cannula 08/08 1600 94 Nasal 2.0L Cannula 08/08 1513 97.2 82 22 100/50 96 Nasal 2.0L Cannula 08/08 1211 98 Nasal 2.0L Cannula 08/08 1008 83 120/68 08/08 0800 93 Nasal 2.0L Cannula Intake & Output 08/09 0800 08/09 0000 08/08 1600 Intake Total 600 480 Output Total 700 2400 2500 Balance -700 1800 -2020 Intake, Oral 600 480 Number 1 Bowel Movements Output, Urine 700 2400 2500 Patient 158.304 kg Weight Weight Bed scale Measurement Method Physical Exam General Appearance: Alert, Oriented X3, Cooperative, Mild Distress Cardiovascular: Regular Rate Lungs: Clear to Auscultation, Normal Air Movement Abdomen: Soft, some questionable tenderness on LLQ, from bladder spasm? Neurological: Normal Speech Extremities: BLE edematous +2-3 pitting edema. Current Medications: Current Medications Sig/Odilon Start time Last Medication Dose Route Stop Time Status Admin Acetaminophen 650 MG .STK-MED ONE 08/08 2120 DC PO 08/08 2121 Acetaminophen 650 MG .STK-MED ONE 08/08 1012 DC PO 08/08 1013 Acetaminophen 650 MG Q6P PRN 08/07 1315 AC 08/08 PO 212 Albuterol Sulfate 3 ML Q4P PRN 08/07 1900 AC 08/07 INH 2045 Aspirin Buffered 162 MG QAM 08/07 1319 AC 08/08 PO 1007 Atorvastatin Calcium 20 MG QPM 03/11 2200 AC 08/08 PO 2122 Clopidogrel Bisulfate 75 MG DAILY 08/07 1319 AC 08/08 PO 1008 Enoxaparin Sodium 40 MG DAILY 08/07 1310 AC 08/08 SC 1008 Furosemide 40 MG 7:30 AM, & 4:30 PM 08/07 1630 AC 08/08 IV 1601 Hydrochlorothiazide 25 MG DAILY 08/08 1000 AC 08/08 PO 1007 Insulin Aspart 0 TIDAC 08/07 1700 AC SC Lisinopril 20 MG DAILY 08/08 1000 AC 08/08 PO 1008 Nicotine 14 MG DAILY 08/07 1504 AC 08/08 TOP 1007 Nystatin 1 KRYSTAL TID PRN 08/07 1330 AC 08/07 TOP 1644 Oxybutynin Chloride 2.5 MG BID PRN 08/08 1045 AC 08/08 PO 2234 Tramadol HCl 50 MG QPM 08/07 2200 AC 08/08 PO 2234 Zolpidem Tartrate 10 MG QPM 08/07 2200 AC 08/08 PO 2234 Last 24 Hrs of Lab/William Results Last 24 Hrs of Labs/Mics: Laboratory Tests 08/09/17 0635: Sodium Pending, Potassium Pending, Chloride Pending, Carbon Dioxide Pending, Anion Gap Pending, BUN Pending, Creatinine Pending, BUN/Creatinine Ratio Pending , TSH Pending, Free T4 Pending, CBC w Diff Pending, WBC Pending, RBC Pending, Hgb Pending, Hct Pending, MCV Pending, MCH Pending, MCHC Pending, RDW Pending, Plt Count Pending, MPV Pending 08/08/17 1200: CBC w Diff Cancelled, WBC Cancelled, RBC Cancelled, Hgb Cancelled, Hct Cancelled , MCV Cancelled, MCH Cancelled, MCHC Cancelled, RDW Cancelled, Plt Count Cancelled, MPV Cancelled Assessment/Plan Assessment: Ms. Patel is a 62-year-old female with past medical history significant for hypertension, hyperlipidemia, type 2 diabetes mellitus, insomnia, chest pain status post cardiac stent placement 2016, on dual anti platelet agents aspirin, Plavix, uterine cancer status post hysterectomy, chemotherapy, radiotherapy, morbidly obese presented to the emergency room for evaluation of shortness of breath and bilateral lower extremity swelling for few weeks. 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 Patient had 5L output over last 24 hours. - DCed hung - Taper O2, currently on 2LNC, as patient was not on home oxygen. - Echocardiogram pending - Stress test scheduled for 08/11. - Apprciate cardiology recommendations - Drop in H&H from 10.4 to 9.5 on latest lab, with borderline MCV of 80s, and ferritin WNL. Continue to moniture. Goal Hb of 8. - Pending stool guaiac. - Discontinued Pioglitazone, Endo consult for adjustment of oral hypoglycemic agents on discharge. - Urine Cx going gram negative rods (Proteus/E.Coli?). Patient had incontinence with bladder spasm however denied any other urinary symptoms, and remained afebrile with no white cell count. Continue to monitor off Abx. - Continue Nystatin powder for inguinal fungal rash. - PT evaluation recommended STR planning - Continue rest of the home medications. DVT Prophylaxis; S/C Lovenox Diabetic CC1 Patient is full code. Problem List: 1. Fluid overload 2. Diabetes 3. Bladder spasms Pain Ratin Pain Location: N/A, however bladder spasm may yield episodic ab discomfort Pain Goal: Remain pain free Pain Plan: see AP Tomorrow's Labs & Rationales: N/A Zach NAPOLES,Alejandrolauriehector 08/09/17 1102: Attending MD Review Statement Attending Statement Attending MD Statement: examined this patient, discuss w/resident/PA/SEAL MIXER, agreed w/resident/PA/SEAL MIXER, reviewed EMR data (avail), discussed with nursing, discussed with case mgmt, amended to note Attending Assessment/Plan: Patient seen and examined. Resting comfortably not in any acute distress. No issues overnight. No events reported on telemetry monitoring. She is diuresing appropriately and put out over 5 L of fluid yesterday. She is a negative fluid balance of over 4 L. her weight has not yet been checked this morning On examination she is not in any respiratory distress. She has no jugular venous distention. She has diminished breath sounds bilaterally with no added sounds. She has persistent bilateral lower extremity edema. Recommendations: -Continue current dose of diuresis. Will consider transitioning to oral Lasix if we are able to wean her off oxygen in the next 24-48 hours. -Mobilize patient as tolerated -Endocrinology follow-up appreciated. Will consider starting patient on at the time of discharge. Her pioglitazone has been discontinued. -Awaiting echocardiogram results. Cardiology service is recommending stress test to rule out ischemic heart disease. This will be done on according to the cardiology department.
--- NOTE | 2017-08-09 08:07 | PN- Diabetes ---
Assessment/Plan Diabetes Assessment: The patient states she feels okay except she cannot move in the new bed that she was given. He states the mattress is too soft to enable her to change position. The patient is on a diabetic diet. She is on Novolog insulin coverage before meals. Her blood sugars have been in a good range and she has not required any coverage. She continues to diuresis with a significantly negative fluid balance over the past few days. Plan: Suggest continue NovoLog coverage before meals sugars above 150. When the patient goes home Jardiance would be a consideration which will help reduce the risk of events for coronary disease and also has strong diuretic properties. Subjective Subjective: Trouble moving in bed due to a soft mattress Review of Systems Constitutional: Denies: chills, fever. Cardiovascular: Denies: chest pain. Respiratory: Denies: short of breath. Gastrointestinal: Denies: nausea, vomiting. Skin: Reports: no symptoms. Objective Last 24 Hrs of Vital Signs/I&O Vital Signs Date Time Temp Pulse Resp B/P B/P Pulse O2 O2 Flow FiO2 Mean Ox Delivery Rate 08/09 0551 97.7 85 20 100/54 92 Nasal 2.0L Cannula 08/09 0000 Nasal 2.0L Cannula 08/08 2230 97.5 70 22 104/58 95 Nasal Cannula 08/086 96 Nasal 2.0L Cannula 08/08 1600 94 Nasal 2.0L Cannula 08/08 1513 97.2 82 22 100/50 96 Nasal 2.0L Cannula 08/08 1211 98 Nasal 2.0L Cannula 08/08 1008 83 120/68 Intake & Output 08/09 1600 08/09 0800 08/09 0000 Intake Total 600 Output Total 700 2400 Balance -700 -1800 Intake, Oral 600 Output, Urine 700 2400 Patient 349 lb Weight Weight Bed scale Measurement Method Vital Signs Date Time Temp Pulse Resp B/P B/P Pulse O2 O2 Flow FiO2 Mean Ox Delivery Rate 08/09 0551 97.7 85 20 100/54 92 Nasal 2.0L Cannula 08/09 0000 Nasal 2.0L Cannula 08/08 2230 97.5 70 22 104/58 95 Nasal Cannula 08/08 2126 96 Nasal 2.0L Cannula 08/08 1600 94 Nasal 2.0L Cannula 08/08 1513 97.2 82 22 100/50 96 Nasal 2.0L Cannula 08/08 1211 98 Nasal 2.0L Cannula 08/08 1008 83 120/68 Intake & Output 08/09 1600 08/09 0800 08/09 0000 Intake Total 600 Output Total 700 2400 Balance -700 -1800 Intake, Oral 600 Output, Urine 700 2400 Patient 349 lb Weight Weight Bed scale Measurement Method Physical Exam General Appearance: alert, awake, anxious Head: normal appearance Neck: normal inspection Respiratory: decreased breath sounds (at bases) Cardiovascular: regular rate/rhythm Abdomen: normal bowel sounds, soft Current Medications: Current Medications Sig/Odilon Start time Last Medication Dose Route Stop Time Status Admin Acetaminophen 650 MG .STK-MED ONE 08/08 2121 DC PO 08/08 212 Acetaminophen 650 MG .STK-MED ONE 08/08 1012 DC PO 08/08 1013 Acetaminophen 650 MG Q6P PRN 08/07 1315 AC 08/08 PO 2121 Albuterol Sulfate 3 ML Q4P PRN 08/07 1900 AC 08/07 INH 2045 Aspirin Buffered 162 MG QAM 08/07 1319 AC 08/08 PO 1007 Atorvastatin Calcium 20 MG QPM 08/07 2200 AC 08/08 PO 2122 Clopidogrel Bisulfate 75 MG DAILY 08/07 1319 AC 08/08 PO 1008 Enoxaparin Sodium 40 MG DAILY 08/07 1310 AC 08/08 SC 1008 Furosemide 40 MG 7:30 AM, & 4:30 PM 08/07 1630 AC 08/08 IV 1601 Hydrochlorothiazide 25 MG DAILY 08/08 1000 AC 08/08 PO 1007 Insulin Aspart 0 TIDAC 08/07 1700 AC SC Lisinopril 20 MG DAILY 08/08 1000 AC 08/08 PO 1008 Nicotine 14 MG DAILY 08/07 1504 AC 08/08 TOP 1007 Nystatin 1 KRYSTAL TID PRN 08/07 1330 AC 08/07 TOP 1644 Oxybutynin Chloride 2.5 MG BID PRN 08/08 1045 AC 08/08 PO 2234 Tramadol HCl 50 MG QPM 08/07 2200 AC 08/08 PO 2234 Zolpidem Tartrate 10 MG QPM 08/07 2200 AC 08/08 PO 2234 Findings Pertinent Lab/William Results: Laboratory Tests 08/09 08/08 0635 1200 Chemistry Sodium Pending Potassium Pending Chloride Pending Carbon Dioxide Pending Anion Gap Pending BUN Pending Creatinine Pending BUN/Creatinine Ratio Pending TSH Pending Free T4 Pending Hematology CBC w Diff Pending Cancelled WBC Pending Cancelled RBC Pending Cancelled Hgb Pending Cancelled Hct Pending Cancelled MCV Pending Cancelled MCH Pending Cancelled MCHC Pending Cancelled RDW Pending Cancelled Plt Count Pending Cancelled MPV Pending Cancelled
[2017-08-09 09:03] LABS: ABSOLUTE BASOPHIL COUNT 0 /CUMM (0.0-0.2); ABSOLUTE EOSINOPHIL COUNT 0.2 /CUMM (0.0-0.7); ABSOLUTE GRANULOCYTE CT 7.9 /CUMM (1.4-6.5); ABSOLUTE LYMPH COUNT 0.6 /CUMM (1.2-3.4); ABSOLUTE MONOCYTE COUNT 1.3 /CUMM (0.10-0.60); BASOPHIL % 0.1 % (0.0-2.0); EOSINOPHIL % 1.8 % (0-5); GRANULOCYTE % 78.3 % (42.2-75.2); HEMATOCRIT 30.9 % (37-47); MEAN CORPUSCULAR HGB 24.9 PG (27.0-31.0); MEAN CORPUSCULAR HGB CONC 30.8 G/DL (33.0-37.0); MEAN CORPUSCULAR VOLUME 80.9 FL (81.0-99.0); MEAN PLATELET VOLUME 7.3 FL (7.4-10.4); PLATELET COUNT 238 /CUMM (130-400); RBC DISTRIBUTION WIDTH 18.5 % (11.5-14.5); RED BLOOD CELL CT 3.82 /CUMM (4.20-5.40)
[2017-08-09] MEDS ORDERED: JARDIANCE10 M1 PO (13:09)
--- NOTE | 2017-08-09 13:11 | Patient Discharge Instructions ---
Discharge Instructions General Discharge Information Special Instructions: - Please check your serum chemistry for potassium and renal function on a weekly basis since you are on Lasix. - Please follow up with your pediatric acute care unit nurse Dr. Harper within 1-2 weeks of discharge. - Please follow up with your primary care physician within 1-2 weeks of discharge. Inform your primary care physician of this admission to [facility]. - Continue your current medications per discharge instructions. - Please watch for these problems: Fever, Chills, Nausea, Vomiting, Shortness of Breath, Productive Cough, Chest Pain/Discomfort, Abdominal Pain, Active Bleeding or Bloody urine/stool. Diet Continue normal diet: Yes Recommended Diet: Heart Healthy Activity Full Activity/No Limits: Yes Acute Coronary Syndrome Inclusion Criteria At DC or during hospital stay patient has or had the following: ACS DIAGNOSIS No Discharge Core Measures Meds if any: Prescribed or Continued at Discharge Meds if any: NOT Prescribed or Continued at Discharge Congestive Heart Failure Inclusion Criteria At DC or during hospital stay patient has or had the following: CHF DIAGNOSIS Yes Discharge Core Measures Meds if any: Prescribed or Continued at Discharge Meds if any: NOT Prescribed or Continued at Discharge Cerebrovascular accident Inclusion Criteria At DC or during hospital stay patient has or had the following: CVA/TIA Diagnosis No Discharge Core Measures Meds if any: Prescribed or Continued at Discharge Meds if any: NOT Prescribed or Continued at Discharge Venous thromboembolism Inclusion Criteria VTE Diagnosis No VTE Type NONE VTE Confirmed by (Test) NONE Discharge Core Measures - Per Current guidelines, there needs to be overlap - treatment for the first 5 days of Warfarin therapy. - If discharged on Warfarin prior to 5 days of - overlap therapy, the patient will need to be - assessed for post discharge needs including - *Post discharge parental anticoagulation - *Warfarin and/or parental anticoagulation education - *Follow up date to check INR post discharge At least 5 days overlap therapy as Inpatient No Meds if any: Prescribed or Continued at Discharge Note: Overlap Therapy is Warfarin and Anticoagulant Meds if any: NOT Prescribed or Continued at Discharge
[2017-08-09 15:20] VITALS: BP 112/60
--- NOTE | 2017-08-09 15:41 | PN- Cardiology ---
Subjective Subjective: * Breathing is now improved to baseline. Legs are no longer sore. Patient would like to ambulate. Objective Vital Signs and I&Os Vital Signs Date Time Temp Pulse Resp B/P B/P Pulse O2 O2 Flow FiO2 Mean Ox Delivery Rate 08/09 1520 97.3 98 20 112/60 96 08/09 0912 97.7 85 20 100/54 08/09 0800 94 Nasal 2.0L Cannula 08/09 0651 97.7 85 20 100/54 92 Nasal 2.0L Cannula 08/09 0000 Nasal 2.0L Cannula 08/08 2230 97.5 70 22 104/58 95 Nasal Cannula 08/08 2126 96 Nasal 2.0L Cannula 08/08 1600 94 Nasal 2.0L Cannula Intake & Output 08/09 1600 08/09 0800 08/09 0000 08/08 1600 08/08 0800 08/08 0000 Intake Total 480 600 480 240 240 Output Total 2700 700 2400 2500 550 1300 Balance -2220 -700 -1800 -2020 -310 -1060 Intake, Oral 480 600 480 240 240 Number 0 1 1 Bowel Movements Output, Urine 2700 700 2400 2500 550 1300 Patient 349 lb Weight Weight Bed scale Measurement Method Physical Exam: General: WD/morbidly obese female in NAD; alert and oriented x 3 Neck: no JVD, no carotid bruit Heart: RRR with 2/6 systolic murmur at the LLSB and RUSB Lungs: no crackles or wheezing Abdomen: soft, Obese, NT, +ve bowel sounds Extremities: 2+ leg edema Assessment/Plan Assessment/Plan * This patient has evidence of decompensated right greater than left heart failure which is likely due to underlying lung disease and 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 She has more mild symptoms of left heart failure which may be on the basis of myocardial ischemia and morbid obesity. Consideration should also be given to the possibility of a malignancy with hepatic involvment considering her history of cancer. I think this is less likely considering her weight gain instead of loss. Change Lasix to 40mg PO BID. Agree with stopping Actos which is known to cause fluid retention. Continue afterload reduction with Lisinopril which will also help her blood pressure. Continue a low sodium and low calorie diabetic diet and supplemental oxygen. * This patient has ruled out for an [place]. Obtain a pharmacologic stress test to see if there is any progression of her LAD lesion that may by contributing to LV dysfunction. Continue aspirin and a Statin. * Allow patient to ambulate. Would stop fluid restriction. Continue telemetry? Yes
[2017-08-09 21:57] VITALS: BP 128/70
[2017-08-10 07:06] VITALS: BP 116/60
--- NOTE | 2017-08-10 07:30 | PN- Housestaff ---
Iris Gomez 08/10/17 0729: Subjective Follow-up For: CHF exacerbation Tele-Events Since Last Visit: NSR 70-90s Subjective: Patient still complainted of frequent bladder spasm overnight which woke her up around 2AM last night. Patient also felt gasy and had only a small bowel movement yesterday. Patient would not want to try stool softener for now. Review of Systems Constitutional: Reports: see HPI. Objective Last 24 Hrs of Vital Signs/I&O Vital Signs Date Time Temp Pulse Resp B/P B/P Pulse O2 O2 Flow FiO2 Mean Ox Delivery Rate 08/10 0706 97.7 96 20 116/60 92 Nasal 2.0L Cannula 08/10 0000 Nasal 2.0L Cannula 08/09 2157 98.4 91 20 128/70 95 08/09 1600 97 Nasal 2.0L Cannula 08/09 1520 97.3 98 20 112/60 96 08/09 0912 97.7 85 20 100/54 08/09 0800 94 Nasal 2.0L Cannula Intake & Output 08/10 0800 08/10 0000 08/09 1600 Intake Total 120 480 Output Total 2200 2700 Balance -2079 -2219 Intake, Oral 120 480 Number 0 Bowel Movements Output, Urine 2200 2700 Patient 158.786 kg Weight Physical Exam General Appearance: Alert, Oriented X3, Cooperative, No Acute Distress Cardiovascular: Regular Rate Lungs: Clear to Auscultation, Normal Air Movement Abdomen: Soft, No Tenderness Neurological: Normal Speech Extremities: +2 edema, improved from yesterday. Current Medications: Current Medications Sig/Odilon Start time Last Medication Dose Route Stop Time Status Admin Acetaminophen 650 MG .STK-MED ONE 08/10 2023 DC PO 08/09 2024 Acetaminophen 650 MG Q6P PRN 08/07 1314 AC 08/09 PO 2023 Albuterol Sulfate 3 ML Q4P PRN 08/07 1900 AC 08/07 INH 2044 Aspirin Buffered 162 MG QAM 08/07 131 AC 08/09 PO 911 Atorvastatin Calcium 20 MG QPM 08/07 220 AC 08/09 PO 222 Clopidogrel Bisulfate 75 MG DAILY 08/07 1319 AC 08/09 PO 0912 Enoxaparin Sodium 40 MG DAILY 08/07 1310 AC 08/09 SC 0912 Furosemide 40 MG 7:30 AM, & 4:30 PM 08/10 0730 AC PO Furosemide 40 MG 7:30 AM, & 4:30 PM 08/07 1630 DC 08/09 IV 08/09 1700 1602 Hydrochlorothiazide 25 MG DAILY 08/08 1000 AC 08/09 PO 0912 Insulin Aspart 0 TIDAC 08/07 1700 AC SC Lisinopril 20 MG DAILY 08/08 1000 AC 08/09 PO 0912 Nicotine 14 MG DAILY 08/07 1504 AC 08/09 TOP 0912 Nystatin 1 KRYSTAL TID PRN 08/07 1330 AC 08/07 TOP 1644 Oxybutynin Chloride 2.5 MG BID PRN 08/08 1045 AC 08/09 PO 2342 Tramadol HCl 50 MG QPM 08/07 2200 AC 08/09 PO 2228 Zolpidem Tartrate 10 MG QPM 08/07 2200 AC 08/09 PO 2228 Last 24 Hrs of Lab/William Results Last 24 Hrs of Labs/Mics: Laboratory Tests 08/10/17 0707: CBC w Diff Pending, WBC Pending, RBC Pending, Hgb Pending, Hct Pending, MCV Pending, MCH Pending, MCHC Pending, RDW Pending, Plt Count Pending, MPV Pending Assessment/Plan Assessment: Ms. Patel is a 62-year-old female with past medical history significant for hypertension, hyperlipidemia, type 2 diabetes mellitus, insomnia, chest pain status post cardiac stent placement 2015, on dual anti platelet agents aspirin, Plavix, uterine cancer status post hysterectomy, chemotherapy, radiotherapy, morbidly obese presented to the emergency room for evaluation of shortness of breath and bilateral lower extremity swelling for few weeks. Preblem List #Decompensated CHF R>L; ??Systolic VS Diastolic #Anemia w/ borderline MCV #Pulmonary Emphasema? 2/2 smoking #Hx of Diabetes, HTN, HLD, CAP s/p stent placement on aspirin and plavix - Continue IV lasix 40 BID and pending switch to PO lasix today. - Monitor daily weights, Ins and Outs. Patient had 5L output over last 24 hours. - Taper O2, currently on 2LNC, as patient was not on home oxygen. - Echocardiogram pending - Stress test scheduled for 08/11. NPO overnight. - Apprciate cardiology recommendations - Drop in H&H from 10.4 to 9.5 on latest lab, with borderline MCV of 80s, and ferritin WNL. Continue to moniture. Goal Hb of 8. - Pending stool guaiac. - Discontinued Pioglitazone, Endo consult for adjustment of oral hypoglycemic agents on discharge. - Urine Cx going Enterobacters. Patient had incontinence with bladder spasm however denied any other urinary symptoms, and remained afebrile with no white cell count. Continue to monitor off Abx. - Continue Nystatin powder for inguinal fungal rash. - PT evaluation recommended STR planning unless home goals met - Continue rest of the home medications. DVT Prophylaxis; S/C Lovenox Diabetic CC1 Full Code. Problem List: 1. Bladder spasms 2. Diabetes 3. Fluid overload Pain Ratin Pain Location: NA Pain Goal: Remain pain free Pain Plan: see AP Tomorrow's Labs & Rationales: JESSICA Serrano MD,[place] 08/10/17 1137: Attending MD Review Statement Attending Statement Attending MD Statement: examined this patient, discuss w/resident/PA/COLLECTION SYSTEMS MODELER, agreed w/resident/PA/COLLECTION SYSTEMS MODELER, reviewed EMR data (avail), discussed with nursing, discussed with case mgmt, amended to note Attending Assessment/Plan: Patient seen and examined. Sitting up in her chair not in any acute distress. She reports feeling better today. Reports less shortness of breath. She diuresed over 5 L of fluid yesterday. Unfortunately there was no change in weight noted. It is unclear if this is indeed accurate. She is improving clinically. Oxygen requirement is currently down to 1 L. On examination air entry has improved bilaterally with no added sounds. At this point we will transition her to oral Lasix starting at 40 mg twice daily. If she continues to do well and is weaned off oxygen we will consider discharge tomorrow after the nuclear stress test recommended by the cardiology service.
[2017-08-10 08:10] LABS: ABSOLUTE BASOPHIL COUNT 0 /CUMM (0.0-0.2); ABSOLUTE EOSINOPHIL COUNT 0.1 /CUMM (0.0-0.7); ABSOLUTE GRANULOCYTE CT 8.7 /CUMM (1.4-6.5); ABSOLUTE LYMPH COUNT 0.6 /CUMM (1.2-3.4); ABSOLUTE MONOCYTE COUNT 1.3 /CUMM (0.10-0.60); BASOPHIL % 0.1 % (0.0-2.0); EOSINOPHIL % 1.4 % (0-5); GRANULOCYTE % 81.3 % (42.2-75.2); HEMATOCRIT 31.3 % (37-47); MEAN CORPUSCULAR HGB 24.7 PG (27.0-31.0); MEAN CORPUSCULAR HGB CONC 30.8 G/DL (33.0-37.0); MEAN CORPUSCULAR VOLUME 80.3 FL (81.0-99.0); PLATELET COUNT 256 /CUMM (130-400); RBC DISTRIBUTION WIDTH 18.8 % (11.5-14.5); WHITE BLOOD CELL COUNT 10.8 /CUMM (4.8-10.8)
--- NOTE | 2017-08-10 09:13 | Discharge Summary ---
Visit Information Visit Dates Admission Date: 08/07/17 Discharge Date: 08/12/2017 Hospital Course Course Attending Physician: Nilton Serrano MD Primary Care Physician: Hernan NAPOLES,Darryl Moreno Hospital Course: Ms Patel is a 62-year-old female with PMH significant for class III obesity hypertension, hyperlipidemia, type 2 diabetes mellitus, insomnia, 70% proximal OM1 lesion s/p RICKI 2016 on DAPT, uterine cancer status post hysterectomy, chemotherapy, radiotherapy, 15-tlch-ylkj smoking history, current smoker came into the emergency room for evaluation of acute onset of dyspnea and worsening pedal edema for the last few weeks. At the time of admission vitals-temperature 96.4, pulse rate 93, respiration 24, blood pressure 1:30/59, pulse ox 100% on 4 L nasal cannula. EKG revealed normal sinus rhythm, heart rate 83, no ST-T wave changes noted. Chest x-ray revealed small bilateral pulmonary effusions with associated basilar opacity consistent with atelectasis. Pertinent lab findings at the time of admission WBC 9.8, hemoglobin 10.4, MCV 80.9, platelets 278. Sodium 139, potassium 5.1, BUN 55, creatinine 0.8, hemoglobin A1c 6.8, liver chemistries-AST 19, ALT 18, alkaline phosphatase 86, cardiac enzymes-troponin I-0.01, 0.01, 0.01. ProBNP 1910. TSH 3.040, free T4 1 0.25. Echocardiogram : 1. Normal EF of 60% 2. Mildly enlarged right ventricle with mildly decreased systolic function 3. Trace mitral regurgitation 4. Mild tricuspid regurgitation 5. Trace aortic insufficiency. 6. Moderate pulmonary hypertension Stress test findings : Normal Persantine stress and resting myocardial perfusion study with normal left ventricular wall motion and ejection fraction. Problem list: #1 Acute decompensated heart failure #2 Type 2 Diabetes #3 Pulmonary Emphasema? 2/2 smoking #4 Hx of Diabetes, HTN, HLD, CAP s/p stent placement on aspirin and plavix She was admitted to telemetry for the treatment of decompensated right heart failure, and was aggressively diuresed. Ins and outs were monitored closely, and daily weights were checked. Etiology was thought to be decompensated right heart failure greater than left heart was considered, due to underlying lung disease and increased pulmonary pressures. She also had mild symptoms of left heart failure, which could be due to Myocardial ischemia, which has been ruled out. Cardiac enzymes remained normal, with no new EKG changes. She was risk stratified with a pharmacologic stress test to see if there is any progression of her LAD lesion that may by contributing to LV dysfunction., which was normal Persantine stress and resting myocardial perfusion study with normal left ventricular wall motion and ejection fraction. Actos was discontinued, since it is known to cause worsening of CHF secondary to fluid retention. Patient was tapered down to oxygen need of 2L nasal cannula and would need short-term rehab to continue wean off oxygen to room air. Patient's lasix dose was adjusted to Oral lasix 40mg twice daily with adequate diuresis with improved CXR prior discharge. She was on pioglitazone, Tradjenta and metformin prior to admission for the managment of diabetes. She was continued on his sliding scale, and blood sugars remained in an acceptable range. At the time of discharge, the plan was to start her on Jardiance 10 mg once a day which is shown to reduce the risk of cardiovascular events and also aid in diuresis. There was an incidental finding of growth of Enterobacter species on urine culture when a Kahn catheter was placed. She also complained of occasional bladder spasms while she she had Kahn catheter in place, and oxybutynin was added for symptomatic relief. She was not treated w/ any abx conisidering this finding from colonization. Consults: 1. Omkar Harper MD ( cardiology ) 2. Jeison Carrillo MD ( Endocrinology ) Allergies: Coded Allergies: NO KNOWN ALLERGIES (08/07/17) Pertinent Lab Results: SERVICE DATE: 08/08/17 18:04 ECHOCARDIOGRAM CONCLUSIONS: 1. Normal EF of 60% 2. Mildly enlarged right ventricle with mildly decreased systolic function 3. Trace mitral regurgitation 4. Mild tricuspid regurgitation 5. Trace aortic insufficiency. 6. Moderate pulmonary hypertension SERVICE DATE: 08/11/17-999 EXAM TYPE: NUC - MYOCARDIAL PERFUSION IMAGING IMPRESSION: Normal Persantine stress and resting myocardial perfusion study with normal left ventricular wall motion and ejection fraction. SERVICE DATE: 08/07/17 EXAM TYPE: RAD - XRY-PORTABLE CHEST XRAY IMPRESSION: Limited evaluation. Question small bilateral layering pleural effusions with associated basilar opacity consistent with atelectasis and/or pneumonia. Mildly enlarged cardiac silhouette. SERVICE DATE: 08/12/17- EXAM TYPE: RAD - XRY-CHEST XRAY, TWO VIEWS IMPRESSION: 1. Cardiomegaly. 2. Mild central vascular congestion, decreased compared to prior exam. No overt pulmonary edema. 3. Small pleural effusions, left greater than right, are suspected. URINE CULTURE Final 08/09/17-1034 Greater than 100,000 colonies per ml of: ENTEROBACTER SPECIES 1. ENTEROBACTER SPECIES RX AB ------ -- AMPICILLIN R CEFAZOLIN R AMOXICILLIN/CLAVULINIC ACID R AMPICILLIN/SULBACTAM R CEFOXITIN R CEFTAZIDIME S CEFTRIAXONE S CIPROFLOXACIN S GENTAMICIN S NITROFURANTOIN S TRIMETHOPRIM/SULFAMETHOXAZOLE S Disposition Summary Disposition Principal Diagnosis: #Decompensated CHF R>L; ??Systolic VS Diastolic Additional Diagnosis: Diabetes Discharge Disposition: SNF Discharge Instructions General Discharge Information Code Status: Full Code Patient's Diet: heart healthy/CHF diet Patient's Activity: As tolerated Follow-Up Instructions/Appts: - Please check your serum chemistry for potassium and renal function on a weekly basis since you are on Lasix. - Please follow up with your ip litigation paralegal Dr. Harper within 1-2 weeks of discharge. - Please follow up with your primary care physician within 1-2 weeks of discharge. Inform your primary care physician of this admission to [facility]. - Continue your current medications per discharge instructions. - Please watch for these problems: Fever, Chills, Nausea, Vomiting, Shortness of Breath, Productive Cough, Chest Pain/Discomfort, Abdominal Pain, Active Bleeding or Bloody urine/stool. Medications at Discharge Discharge Medications: Stop taking the following medications: Pioglitazone HCl (Pioglitazone HCl) 30 MG TABLET ORAL DAILY Qty = 30 Lisinopril/Hydrochlorothiazide (Lisinopril-Hctz 20-25 MG Tab) 20 MG-25 MG TABLET ORAL DAILY Qty = 30 Continue taking these medications: Clopidogrel Bisulfate (Clopidogrel) 75 MG TABLET 1 Tablet ORAL DAILY Qty = 30 Comments: Last Taken:08/12/17 Time:1150 AM Linagliptin (Tradjenta) 5 MG TABLET 1 Tablet ORAL DAILY Qty = 30 Comments: Last Taken:NOT GIVEN IN THE HOSPITAL Time: Metformin HCl (Metformin HCl) 1,000 MG TABLET 1 Tablet ORAL TWICE DAILY Qty = 60 Comments: Last Taken:NOT GIVEN IN THE HOSPITAL Time: Atorvastatin Calcium (Atorvastatin Calcium) 20 MG TABLET 1 Tablet ORAL Every night Qty = 30 Comments: Last Taken:08/11/17 Time:11 PM Tramadol HCl (Tramadol HCl) 50 MG TABLET 1 Tablet ORAL Every night Qty = 30 Comments: Last Taken:08/11/17 Time:11 PM Zolpidem Tartrate (Zolpidem Tartrate) 10 MG TABLET 1 Tablet ORAL Every night Qty = 30 Comments: Last Taken:08/11/17 Time:11 PM Aspirin (Ecotrin*) 81 MG TABLET.DR 2 Tablet ORAL Every Morning Comments: Last Taken:08/12/17 Time:1150 AM Acetaminophen (Acetaminophen) 500 MG TABLET 2 Tablet ORAL Every Morning Comments: Last Taken:08/11/17 Time:9:40 PM Start taking the following new medications: Lisinopril (Lisinopril) 20 MG TABLET 20 Milligram ORAL DAILY Qty = 60 No Refills Comments: Last Taken:08/12/17 Time:1150 AM Potassium Chloride (Klor-Con M20) 20 MEQ TAB.ER.PRT 20 Millequivalent ORAL DAILY Qty = 30 No Refills Comments: Last Taken:08/12/17 Time:1150 AM Empagliflozin (Jardiance) 10 MG TABLET 1 Tablet ORAL DAILY Qty = 30 No Refills Comments: Last Taken:NOT GIVEN IN THE HOSPITAL Time: Furosemide (Furosemide) 40 MG TABLET 1 Tablet ORAL TWICE DAILY Qty = 30 No Refills Comments: Last Taken:08/12/17 Time:5 PM Copies To: Hernan NAPOLES,Darryl Moreno Attending Review Statement Documenting Attending: Nilton Serrano MD Other Findings: Discharged in stable condition
[2017-08-10] MEDS ORDERED: LISINOPRIL20 M1 PO (10:11)
[2017-08-10 14:10] VITALS: BP 120/56
--- NOTE | 2017-08-10 21:24 | PN- Cardiology ---
Subjective Subjective: * Breathing is back to baseline. Mildly increased leg swelling compared to baseline. Objective Vital Signs and I&Os Vital Signs Date Time Temp Pulse Resp B/P B/P Pulse O2 O2 Flow FiO2 Mean Ox Delivery Rate 08/10 1601 Nasal 1.0L Cannula 08/10 1600 90 Nasal 1.0L Cannula 08/10 1410 98.0 92 20 120/56 90 Nasal 1.0L Cannula 08/10 0916 97 116/60 08/10 0800 92 Nasal 2.0L Cannula 08/10 0706 97.7 96 20 116/60 92 Nasal 2.0L Cannula 08/10 0000 Nasal 2.0L Cannula 08/09 2157 98.4 91 20 128/70 95 Intake & Output 08/10 1600 08/10 0800 08/10 0000 08/09 1600 08/09 0800 08/09 0000 Intake Total 720 120 120 480 600 Output Total 2800 550 2200 2700 700 2400 Balance -2080 -430 -2080 -2220 -700 -1800 Intake, Oral 720 120 120 480 600 Number 0 0 Bowel Movements Output, Urine 2800 550 2200 2700 700 2400 Patient 350 lb 349 lb Weight Weight Bed scale Measurement Method Physical Exam: General: WD/morbidly obese female in NAD; alert and oriented x 3 Neck: no JVD, no carotid bruit Heart: RRR with 2/6 systolic murmur at the LLSB and RUSB Lungs: no crackles or wheezing Abdomen: soft, Obese, NT, +ve bowel sounds Extremities: large legs without edema Assessment/Plan Assessment/Plan * This patient has evidence of decompensated right greater than left heart failure which is likely due to underlying lung disease and 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 She has more mild symptoms of left heart failure which may be on the basis of myocardial ischemia and morbid obesity. Continue Lasix at 40mg PO BID. Agree with stopping Actos which is known to cause fluid retention. Continue afterload reduction with Lisinopril which will also help her blood pressure. Continue a low sodium and low calorie diabetic diet and supplemental oxygen. * This patient has ruled out for an HI. Will obtain a pharmacologic stress test to see if there is any progression of her LAD lesion that may by contributing to LV dysfunction tomorrow. Continue aspirin and a Statin. Continue telemetry? Yes
[2017-08-10 22:59] VITALS: BP 110/80
[2017-08-11 06:54] VITALS: BP 104/50
--- NOTE | 2017-08-11 07:28 | PN- Housestaff ---
Iris Gomez 08/11/17 0728: Subjective Follow-up For: CHF exacerbation Fluid retention Tele-Events Since Last Visit: NSR 90-115 Subjective: No overnight event, patient felt generally improved on sleep quality without getting up much for bladder spasm after hung removal. Adequate diuresis per patient. Acknowledged for stress test today. No other complaint. No bowel movement. Review of Systems Constitutional: Reports: see HPI. Objective Last 24 Hrs of Vital Signs/I&O Vital Signs Date Time Temp Pulse Resp B/P B/P Pulse O2 O2 Flow FiO2 Mean Ox Delivery Rate 08/11 0800 95 Nasal 1.0L Cannula 08/11 0654 97.6 91 20 104/50 90 Nasal 2.0L Cannula 08/11 0000 Nasal 1.0L Cannula 08/10 2259 98.1 98 20 110/80 90 08/10 1601 Nasal 1.0L Cannula 08/10 1600 90 Nasal 1.0L Cannula 08/10 1410 98.0 92 20 120/56 90 Nasal 1.0L Cannula Intake & Output 08/11 1600 08/11 0800 08/11 0000 Intake Total 120 480 Output Total 450 775 Balance -330 -295 Intake, Oral 120 480 Output, Urine 450 775 Patient 152.464 kg 75.013 kg Weight Weight Bed scale Measurement Method Physical Exam General Appearance: Alert, Oriented X3, Cooperative, No Acute Distress Cardiovascular: Regular Rate Lungs: Clear to Auscultation, Normal Air Movement Abdomen: Soft, No Tenderness Neurological: Normal Speech Extremities: BLE 2+ edema Current Medications: Current Medications Sig/Odilon Start time Last Medication Dose Route Stop Time Status Admin Acetaminophen 650 MG Q6P PRN 08/07 1315 AC 08/11 PO 0620 Albuterol Sulfate 3 ML Q4P PRN 08/07 1900 AC 08/07 INH 2045 Aspirin Buffered 162 MG QAM 08/07 1319 AC 08/10 PO 0916 Atorvastatin Calcium 20 MG QPM 08/07 2200 AC 08/10 PO 2121 Clopidogrel Bisulfate 75 MG DAILY 08/07 1319 AC 08/10 PO 0916 Dipyridamole 60 MG 1100 08/11 1100 DC Dextrose/Water 28 ML IV 08/11 1103 Enoxaparin Sodium 40 MG DAILY 08/07 1310 AC 08/10 SC 0914 Furosemide 40 MG 7:30 AM, & 4:30 PM 08/10 0730 AC 08/11 PO 0610 Hydrochlorothiazide 25 MG DAILY 08/08 1000 DC 08/10 PO 0916 Insulin Aspart 0 TIDAC 08/07 1700 DC SC Insulin Human Regular 0 Q6 08/10 2359 AC 08/11 SC 0610 Lisinopril 20 MG DAILY 08/08 1000 AC 08/10 PO 0916 Nicotine 14 MG DAILY 08/07 1504 AC 08/10 TOP 0916 Nystatin 1 KRYSTAL TID PRN 08/07 1330 AC 08/10 TOP 2129 Oxybutynin Chloride 2.5 MG BID PRN 08/08 1045 AC 08/10 PO 0915 Tramadol HCl 50 MG QPM 08/07 2200 AC 08/10 PO 2121 Zolpidem Tartrate 10 MG QPM 08/07 2200 AC 08/10 PO 212 Last 24 Hrs of Lab/William Results Last 24 Hrs of Labs/Mics: Laboratory Tests 08/11/17 0643: Anion Gap 10, Estimated GFR 56 L, BUN/Creatinine Ratio 34.0 H, CBC w Diff NO MAN DIFF REQ, RBC 3.69 L, MCV 80.7 L, MCH 24.7 L, MCHC 30.6 L, RDW 19.0 H, MPV 7.1 L, Gran % 77.0 H, Lymphocytes % 6.9 L, Monocytes % 12.8 H, Eosinophils % 3.1, Basophils % 0.2, Absolute Granulocytes 6.4, Absolute Lymphocytes 0.6 L, Absolute Monocytes 1.1 H, Absolute Eosinophils 0.3, Absolute Basophils 0 Assessment/Plan Assessment: Ms. Patel is a 62-year-old female with past medical history significant for hypertension, hyperlipidemia, type 2 diabetes mellitus, insomnia, chest pain status post cardiac stent placement 2015, on dual anti platelet agents aspirin, Plavix, uterine cancer status post hysterectomy, chemotherapy, radiotherapy, morbidly obese presented to the emergency room for evaluation of shortness of breath and bilateral lower extremity swelling for few weeks. Preblem List #Decompensated CHF R>L; ??Systolic VS Diastolic #Anemia w/ borderline MCV #Pulmonary Emphasema? 2/2 smoking #Hx of Diabetes, HTN, HLD, CAP s/p stent placement on aspirin and plavix - Continued PO lasix 40mg bid today, and pending Stress test. - Monitor daily weights, Ins and Outs. Patient had 3L output over last 24 hours. - Taper O2, currently on 2LNC, as patient was not on home oxygen. - Echocardiogram pending - Apprciate cardiology recommendations. Awaiting recommedation for discharge. - Hgb 9.1 on latest lab, with borderline MCV of 80s, and ferritin WNL. Continue to moniture. Goal Hb >8. - Discontinued Pioglitazone, Endo consult for adjustment of oral hypoglycemic agents on discharge. - Urine Cx going Enterobacters. Patient had incontinence with bladder spasm however denied any other urinary symptoms, and remained afebrile with no white cell count. Continue to monitor off Abx. - Continue Nystatin powder for inguinal fungal rash. - PT evaluation recommended STR planning unless home goals met. - Continue rest of the home medications. DVT Prophylaxis; S/C Lovenox Diabetic CC1 Full Code. Problem List: 1. Diabetes 2. Fluid overload 3. CHF (congestive heart failure) Pain Ratin Pain Location: see AP Pain Goal: Remain pain free Pain Plan: see AP Tomorrow's Labs & Rationales: FERDINAND Serrano MD,Nilton 08/11/17 1245: Attending MD Review Statement Attending Statement Attending MD Statement: examined this patient, discuss w/resident/PA/IT TECHNICAL SUPPORT SPECIALIST, agreed w/resident/PA/IT TECHNICAL SUPPORT SPECIALIST, reviewed EMR data (avail), discussed with nursing, discussed with case mgmt, amended to note Attending Assessment/Plan: Patient seen and examined. Resting comfortably and was in any acute distress. No issues overnight. She reports feeling better this morning. Maintaining saturation on 1 L of oxygen. She had the first portion of her nuclear stress test this morning. The second portion will be completed tomorrow. She continues to diurese appropriately with improvement of her weight. We will continue current dose of oral Lasix. Disposition will be decided on tomorrow after results of her nuclear stress test.
[2017-08-11 08:18] LABS: ABSOLUTE BASOPHIL COUNT 0 /CUMM (0.0-0.2); ABSOLUTE EOSINOPHIL COUNT 0.3 /CUMM (0.0-0.7); ABSOLUTE GRANULOCYTE CT 6.4 /CUMM (1.4-6.5); ABSOLUTE LYMPH COUNT 0.6 /CUMM (1.2-3.4); ABSOLUTE MONOCYTE COUNT 1.1 /CUMM (0.10-0.60); BASOPHIL % 0.2 % (0.0-2.0); EOSINOPHIL % 3.1 % (0-5); HEMATOCRIT 29.8 % (37-47); MEAN CORPUSCULAR HGB 24.7 PG (27.0-31.0); MEAN CORPUSCULAR HGB CONC 30.6 G/DL (33.0-37.0); MEAN CORPUSCULAR VOLUME 80.7 FL (81.0-99.0); MEAN PLATELET VOLUME 7.1 FL (7.4-10.4); PLATELET COUNT 233 /CUMM (130-400); RED BLOOD CELL CT 3.69 /CUMM (4.20-5.40); WHITE BLOOD CELL COUNT 8.3 /CUMM (4.8-10.8)
[2017-08-11 15:25] VITALS: BP 98/38
--- NOTE | 2017-08-11 22:20 | PN- Cardiology ---
Subjective Subjective: * No shortness of breath or chest discomfort. Legs remain swollen although improved compared to pre-admission. * sinus rhythm Objective Vital Signs and I&Os Vital Signs Date Time Temp Pulse Resp B/P B/P Pulse O2 O2 Flow FiO2 Mean Ox Delivery Rate 08/11 1525 97.7 91 20 98/38 95 Room Air 08/11 1301 112/70 08/11 0800 95 Nasal 1.0L Cannula 08/11 0654 97.6 91 20 104/50 90 Nasal 2.0L Cannula 08/11 0000 Nasal 1.0L Cannula 08/10 2259 98.1 98 20 110/80 90 Intake & Output 08/11 1600 08/11 0800 08/11 0000 08/10 1600 08/10 0800 08/10 0000 Intake Total 400 120 480 720 120 120 Output Total 2150 957 138 2253 550 2200 Balance -1750 -330 -295 -2080 -430 -2080 Intake, Oral 400 120 480 720 120 120 Number 0 Bowel Movements Output, Urine 2150 784 891 2183 550 2200 Patient 336 lb 165 lb 350 lb Weight Weight Bed scale Measurement Method Physical Exam: General: WD/morbidly obese female in NAD; alert and oriented x 3 Neck: no JVD, no carotid bruit Heart: RRR with 2/6 systolic murmur at the LLSB and RUSB Lungs: no crackles or wheezing Abdomen: soft, Obese, NT, +ve bowel sounds Extremities: large legs without edema Assessment/Plan Assessment/Plan * Patient underwent the stress portion of a two day pharmacologic stress test which was tolerated well without ECG evidence of ischemia. Nuclear images are pending. No changes to medications for now except it is recommended to begin Kdur 20meq PO daily since the patient is on Lasix with a slightly low potassium. Continue telemetry? Yes
[2017-08-11 22:44] VITALS: BP 108/68
[2017-08-12 08:42] VITALS: BP 110/70
--- NOTE | 2017-08-12 08:52 | PN- Housestaff ---
GomezIris 08/12/17 0847: Subjective Follow-up For: CHF exacerbation Fluid retention Tele-Events Since Last Visit: NSR Subjective: No overnight event, patient felt generally improved without getting up much for bladder spasm after hung removal. Adequate diuresis per patient. Acknowledged for stress test second part today. No other complaint. No bowel movement. Review of Systems Constitutional: Reports: see HPI. Objective Last 24 Hrs of Vital Signs/I&O Vital Signs Date Time Temp Pulse Resp B/P B/P Pulse O2 O2 Flow FiO2 Mean Ox Delivery Rate 08/12 0842 97.6 94 22 110/70 91 Nasal 3.0L Cannula 08/12 0000 Nasal 2.0L Cannula 08/11 2244 97.9 94 18 108/68 93 08/11 1525 97.7 91 20 98/38 95 Room Air 08/11 1301 112/70 Intake & Output 08/12 1600 08/12 0800 08/12 0000 Intake Total 120 120 Output Total 500 1100 Balance -380 -980 Intake, Oral 120 120 Output, Urine 500 1100 Patient 149.345 kg Weight Physical Exam General Appearance: Alert, Oriented X3, Cooperative, No Acute Distress Cardiovascular: Regular Rate, Normal S1, Normal S2 Lungs: Clear to Auscultation, Normal Air Movement Abdomen: Soft, No Tenderness Neurological: Normal Speech Extremities: Normal Pulses, BLE 2+ edema Current Medications: Current Medications Sig/Odilon Start time Last Medication Dose Route Stop Time Status Admin Acetaminophen 650 MG Q6P PRN 08/07 1315 AC 08/11 PO 2144 Albuterol Sulfate 3 ML Q4P PRN 08/07 1900 AC 08/07 INH 2045 Aspirin Buffered 162 MG QAM 08/07 1319 AC 08/11 PO 1301 Atorvastatin Calcium 20 MG QPM 08/07 2200 AC 08/11 PO 2310 Clopidogrel Bisulfate 75 MG DAILY 08/07 1319 AC 08/11 PO 1301 Dipyridamole 60 MG 1100 08/11 1100 DC 08/11 Dextrose/Water 28 ML IV 08/11 1103 1030 Enoxaparin Sodium 40 MG DAILY 08/07 1310 AC 08/11 SC 1300 Furosemide 40 MG 7:30 AM, & 4:30 PM 08/10 0730 AC 08/11 PO 1748 Hydrochlorothiazide 25 MG DAILY 08/08 1000 DC 08/10 PO 0916 Insulin Aspart 0 TIDAC 08/11 1200 AC SC Insulin Human Regular 0 Q6 08/10 2359 DC 08/11 SC 0610 Lisinopril 20 MG DAILY 08/08 1000 AC 08/11 PO 1301 Nicotine 14 MG DAILY 08/07 1504 AC 08/11 TOP 1300 Nystatin 1 KRYSTAL TID PRN 08/07 1330 DC 08/10 TOP 2129 Oxybutynin Chloride 2.5 MG BID PRN 08/08 1045 AC 08/10 PO 0915 Potassium Chloride 20 MEQ DAILY 08/11 2300 AC 08/11 PO 2310 Tramadol HCl 50 MG QPM 08/07 2200 AC 08/11 PO 2310 Zolpidem Tartrate 10 MG QPM 08/07 2200 AC 08/11 PO 2310 Last 24 Hrs of Lab/William Results Last 24 Hrs of Labs/Mics: Laboratory Tests 08/11/172151: Troponin I < 0.01 Assessment/Plan Assessment: Ms. Patel is a 62-year-old female with past medical history significant for hypertension, hyperlipidemia, type 2 diabetes mellitus, insomnia, chest pain status post cardiac stent placement 2015, on dual anti platelet agents aspirin, Plavix, uterine cancer status post hysterectomy, chemotherapy, radiotherapy, morbidly obese presented to the emergency room for evaluation of shortness of breath and bilateral lower extremity swelling for few weeks. Preblem List #Decompensated CHF R>L; ??Systolic VS Diastolic #Anemia w/ borderline MCV #Pulmonary Emphasema? 2/2 smoking #Hx of Diabetes, HTN, HLD, CAP s/p stent placement on aspirin and plavix - Continued PO lasix 40mg bid today, and pending Stress test part 2. - Added K-dur 20meq to prevent hypokalemia - Monitor daily weights, Ins and Outs. Patient had 3L output over last 24 hours. - Taper O2, currently on 2LNC. Patient's ambulation would cause desat. Patient was not on home oxygen. - Echocardiogram pending - will repeat CXR to compare with previous for pulm congestion. - Apprciate cardiology recommendations. Awaiting recommedation for discharge. - Hgb 9.1 on latest lab, with borderline MCV of 80s, and ferritin WNL. Continue to moniture. Goal Hb >8. - Discontinued Pioglitazone, Endo consult for adjustment of oral hypoglycemic agents on discharge. - Urine Cx going Enterobacters. Patient had incontinence with bladder spasm however denied any other urinary symptoms, and remained afebrile with no white cell count. Continue to monitor off Abx. - Continue Nystatin powder for inguinal fungal rash. - PT evaluation recommended STR planning unless home goals met. - Continue rest of the home medications. DVT Prophylaxis; S/C Lovenox Diabetic CC1 Full Code. Problem List: 1. CHF (congestive heart failure) 2. Fluid overload Pain Ratin Pain Location: NA Pain Goal: Remain pain free Pain Plan: see AP Tomorrow's Labs & Rationales: Nilton Harrison MD 08/12/17 1328: Attending MD Review Statement Attending Statement Attending MD Statement: examined this patient, discuss w/resident/PA/CULLET TRUCKER, agreed w/resident/PA/CULLET TRUCKER, reviewed EMR data (avail), discussed with nursing, discussed with case mgmt, amended to note Attending Assessment/Plan: Patient seen and examined. Resting comfortably not in any acute distress. She continues to diurese appropriately. She continues to lose weight every day. She was on minimal oxygen supplementation yesterday however we are unable to wean her off oxygen completely. She desaturates when mobilize. Her hypoxia is likely combination of diastolic dysfunction and deconditioning. She will continue to require oxygen supplementation on discharge. She will be discharged today, on Lasix 40 mg orally twice daily. She is to continue oxygen supplementation. She is to follow-up with cardiology service as an outpatient.
[2017-08-12] MEDS ORDERED: FUROSEMIDE40 M1 PO (09:15)
[2017-08-12] MEDS ORDERED: KLOR-CON M2020 ME1 PO (10:05)
--- NOTE | 2017-08-12 12:55 | NUCLEAR MEDICINE REPORT ---
PERSANTINE STRESS AND RESTING SPECT MYOCARDIAL PERFUSION IMAGING STUDY WITH GATED SPECT IMAGES: CLINICAL INDICATION: CHF. PROCEDURE: Regional myocardial perfusion was assessed using a 2 day protocol. Stress images were obtained on 08/11/2017 following the intravenous administration of 55.4 mCi Tc 99m Myoview. Stress consisted of 60 mg Persantine given intravenously. Following the sestamibi injection, no aminophylline was given intravenously. Rest images were obtained 08/12/2017 following the intravenous administration of 56.8 mCi Technetium 99m Myoview. Single photon emission tomographic (SPECT) images were obtained. SPECT images were acquired in a 64 x 64 matrix of 64 projections over 180 degrees. These were reconstructed into standard short axis, horizontal and vertical long axis cardiac projections. FINDINGS: The post stress images demonstrate the left ventricular chamber to be normal in size. There is homogeneous distribution of activity in the left ventricular myocardium with no regions of abnormally decreased activity noted. The resting images also demonstrate homogeneous distribution of activity in the left ventricular myocardium, and are not significantly changed from the post stress images. The images were obtained using a gated SPECT technique, which permits visualization of wall motion and calculation of the left ventricular ejection fraction. No left ventricular wall motion abnormalities are noted on either the stress or resting study. The calculated left ventricular ejection fraction is 75% on the stress study. No previous study is available for comparison. IMPRESSION: Normal Persantine stress and resting myocardial perfusion study with normal left ventricular wall motion and ejection fraction.
--- NOTE | 2017-08-12 13:16 | IV DIPYRIDAMOLE NUCLEAR STRESS ---
Clinical Diagnosis: Congestive Heart Failure Making Machine Operator: Rickey Gillis IV DIPYRIDAMOLE INFUSED: 60 mg IV AMINOPHYLLINE INFUSED: 0 mg PATIENT WEIGHT: 350 lbs INTERPRETATION: The patient's baseline EKG showed normal sinus rhythm at 84 BPM. Baseline B/P 138/68. The patient received 60 mg of dipyridamole infused intravenously over a 4 minute period. TC99M Myoview was injected after dipyridamole infusion. The patient tolerated the infusion well. There were no EKG changes seen following pharmacologic infusion. Arrhythmias: None IMPRESSION: The test was supervised by the interpreting Continuous Improvement Engineer, who was in attendance during the entire test. No EKG evidence of stress induced myocardial ischemia. See separately dictated Nuclear Report.
[2017-08-12 14:38] VITALS: BP 110/70
--- NOTE | 2017-08-12 16:01 | RADIOLOGY REPORT ---
EXAMINATION: XR CHEST CLINICAL INFORMATION: CHF exacerbation with anasarca. On Lasix therapy. Rule out acute issue. Compare with previous. COMPARISON: Several prior chest x-rays, most recent of which is dated 08/07/2017. TECHNIQUE: 2 views of the chest were obtained. FINDINGS: The cardiomediastinal silhouette is mildly enlarged, unchanged. Compared to the prior exam, degree of central vascular congestion has decreased significantly. No evidence of pulmonary edema is seen. Indistinctness of the lower lungs is again noted, most likely related to patient's body habitus. Small pleural effusions, especially on the left side are suspected. No pneumothorax or focal dense consolidation is seen. Mild multilevel spurring in the mid and lower thoracic spine. IMPRESSION: 1. Cardiomegaly. 2. Mild central vascular congestion, decreased compared to prior exam. No overt pulmonary edema. 3. Small pleural effusions, left greater than right, are suspected.
[2017-08-12 17:56] VITALS: BP 110/70
--- NOTE | 2017-08-16 07:12 | ECHOCARDIOGRAM REPORT ---
KITTY MAGANA Age: 62 : 1955 Gender: F Exam Date: 08/08/2017 18:04 Exam Location: [place] Ht (in): 60 Wt (lb): 354 BSA: 2.73 BP: 98 / 44 Ordering Physician: Jose Hayes MD Referring Physician: Omkar Harper MD, PhD Technologist: Nathan Kim [facility] [place] Room Number: [id number] Indications: HEART FAILURE Rhythm: Sinus Technical Quality: poor FINDINGS Left Ventricle Normal left ventricular size, wall thickness and systolic function with no obvious regional wall motion abnormalities. Normal left ventricular diastolic filling pattern for age. The ejection fraction is visually estimated at 60%. Right Ventricle The right ventricle is mildly enlarged with decreased contractility. Right Atrium The right atrium is normal in size. Left Atrium The left atrium is normal in size. The interatrial septum is intact. Mitral Valve The mitral valve is normal in structure and function. There is trace mitral regurgitation. Aortic Valve Mildly thickened aortic valve without significant sclerosis or stenosis. There is trace aortic regurgitation. Tricuspid Valve The tricuspid valve is normal in structure and function. There is mild tricuspid regurgitation. Pulmonary artery systolic pressure is moderately elevated to 51mmhg. Pulmonic Valve Structurally normal pulmonic valve. There is no pulmonic regurgitation. Pericardium Normal pericardium without effusion. No pleural effusion. Great Vessels Normal aortic root dimension. The aortic arch and great vessels are well seen and are normal. CONCLUSIONS 1. Normal EF of 60%. 2. Mildly enlarged right ventricle with mildly decreased systolic function. 3. Trace mitral regurgitation. 4. Mild tricuspid regurgitation. 5. Trace aortic insufficiency. 6. Moderate pulmonary hypertension. Omkar Harper M.D. (Electronically Signed) Final Date: 09 August 2017 16:05 Amended: 15 August 2017 11:12 MEASUREMENTS (Male / Female) Normal Values 2D ECHO LV Diastolic Diameter PLAX 5.1 cm 4.2 - 5.9 / 3.9 - 5.3 cm LV Systolic Diameter PLAX 3.5 cm 2.1 - 4.0 cm LV Fractional Shortening PLAX 31.4 % 25 - 46 % LV Ejection Fraction 2D Teich 58.9 % IVS Diastolic Thickness 1.1 cm LVPW Diastolic Thickness 1.1 cm LV Relative Wall Thickness 0.4 RV Internal Dim ED PLAX 3.6 cm 1.9 - 3.8 cm LVOT Diameter 2.2 cm Aortic Root Diameter 3.3 cm LA Systolic Diameter LX 3.9 cm 3.0 - 4.0 / 2.7 - 3.8 cm LA Volume 43.0 cm 18 - 58 / 22 - 52 cm Ascending Aorta Diameter 2.8 cm DOPPLER AV Peak Velocity 143.0 cm/s AV Peak Gradient 8.2 mmHg AV Mean Velocity 113.0 cm/s AV Mean Gradient 6.0 mmHg AV Velocity Time Integral 27.8 cm LVOT Peak Velocity 106.0 cm/s LVOT Peak Gradient 4.5 mmHg LVOT Mean Velocity 77.6 cm/s LVOT Mean Gradient 3.0 mmHg LVOT Velocity Time Integral 21.3 cm LVOT Stroke Volume 81.0 cm AV Area Cont Eq vti 2.9 cm AV Area Cont Eq pk 2.8 cm MV Peak Velocity 101.0 cm/s MV Peak Gradient 4.1 mmHg MV Mean Velocity 78.9 cm/s MV Mean Gradient 3.0 mmHg Mitral E Point Velocity 78.2 cm/s Mitral A Point Velocity 76.3 cm/s Mitral E to A Ratio 1.0 MV PHT Velocity 103.0 cm/s MV Deceleration [place] 643.0 cm/s MV Pressure Half Time 48.1 ms MV Area PHT 4.6 cm MV Deceleration Time 165.0 ms TV Peak Velocity 354.5 cm/s Right Atrial Pressure 5.0 mmHg PV Peak Velocity 109.0 cm/s PV Peak Gradient 4.8 mmHg PV Mean Velocity 81.1 cm/s PV Mean Gradient 3.0 mmHg PV Velocity Time Integral 19.9 cm
== END 2017-08-12 19:55 | DRG 291 ==
LOC: ERH 09:05 → ERHI 11:01 → 1NO 11:01 → ENRESERV 12:05 → ENTRNSPT 13:27 → EDTRNSPTSTS 13:58 → 1NO 14:09 → CMPTRNSPT 14:13 → 1NO 08-08 07:47
PROVIDERS: Emergency Medicine; Hospitalist; Internal Medicine
DX: I11.0 Hypertensive heart disease with heart failure (principal); J96.01 Acute respiratory failure with hypoxia; E66.01 Morbid (severe) obesity due to excess calories; I27.20 Pulmonary hypertension, unspecified; Z68.44 Body mass index [BMI] 60.0-69.9, adult; I50.9 Heart failure, unspecified; E11.9 Type 2 diabetes mellitus without complications; B35.6 Tinea cruris; D50.9 Iron deficiency anemia, unspecified; E78.5 Hyperlipidemia, unspecified; F17.200 Nicotine dependence, unspecified, uncomplicated; G47.00 Insomnia, unspecified; I25.10 Atherosclerotic heart disease of native coronary artery without angina pectoris; M19.90 Unspecified osteoarthritis, unspecified site; J44.9 Chronic obstructive pulmonary disease, unspecified; N32.89 Other specified disorders of bladder; Z85.42 Personal history of malignant neoplasm of other parts of uterus; Z90.79 Acquired absence of other genital organ(s); Z79.84 Long term (current) use of oral hypoglycemic drugs; Z90.722 Acquired absence of ovaries, bilateral; Z90.710 Acquired absence of both cervix and uterus; Z95.5 Presence of coronary angioplasty implant and graft
CPT/HCPCS: 1NP; 36415; 36592; 71045; 71046; 78452; 81001; 82436; 87086; 93005; 93010; 93016; 93017; 97116-GO; 97161-GP; 97530-GO; A9502; J1245; J1650; J1815; J1940